=== PATIENT | female | born 1950 | race Caucasian/White ===

== ENCOUNTER 2021-09-15 09:09 | Outpatient (CLI) | payer MEDICARE, OTHER, SELFPAY ==
[2021-09-15 10:02] LABS: Basophils Percent Auto 0.5 % (0.2-1.2); Eosinophils Absolute Auto 0.2 K/mm3 (0-0.3); Eosinophils Percent Auto 1.8 % (0-4.4); Hematocrit 41.1 % (37.0-47.0); Hemoglobin 13.8 g/dL (12.0-15.0); Immature Granulocyte Absolute 0.03 K/mm3 (0.00-0.031); Immature Granulocyte Percent A 0.4 % (0-0.5); Lymphocytes Absolute Auto 3.14 K/mm3 (0.9-3.2); Lymphocytes Percent Auto 37.9 % (18.3-44.2); Mean Corpuscular HGB Conc 33.6 g/dl (32-36); Mean Corpuscular Hemoglobin 30.9 pg (26-34); Mean Corpuscular Volume 91.9 fl (80-100); Mean Platelet Volume 11.1 fl (7.4-10.4); Monocytes Absolute Auto 0.7 K/mm3 (0.1-0.6); Monocytes Percent Auto 8.7 % (2.6-8.5); Neutrophils Absolute Auto 4.2 K/mm3 (1.3-6.7); Neutrophils Percent Auto 50.7 % (45.5-73.1); Platelet Count Result 254 k/mm3 (150-375); Red Blood Count 4.47 M/mm3 (4.2-5.4); Red Cell Distribution Width 13.4 % (11.5-14.5); White Blood Count 8.3 K/mm3 (4.5-10.0)
[2021-09-15 10:16] LABS: Alanine Aminotransferase 17 U/L (4-35); Albumin Level 4.2 g/dL (3.5-5.1); Alkaline Phosphatase 62 U/L (38-126); Anion Gap 7 mmol/L (8-16); Aspartate Amino Transferase 25 U/L (14-36); Bilirubin,Total 0.3 mg/dL (0.2-1.3); Blood Urea Nitrogen 22 mg/dL (7-17); Calcium 8.9 mg/dL (8.4-10.2); Carbon Dioxide 28 mmol/L (22-30); Chloride 104 mmol/L (98-107); Estimated Glomerular Filt Rate > 60; Glucose 80 mg/dL (65-110); Potassium 4.5 mmol/L (3.4-5.0); Sodium 139 mmol/L (137-145)
[2021-09-15 21:19] LABS: Free T4 Free Thyroxine Reflex 1.03 ng/dL (0.78-2.19)
[2021-09-15 22:11] LABS: Total Triiodothyronine (T3) 6.45 NG/ML (0.97-1.69)
== END 2021-09-15 09:10 | disposition home or self-care (01) ==
PROVIDERS: Visit Provider Internal Medicine Cardiovascular Disease
DX: R09.89 Other specified symptoms and signs involving the circulatory and respiratory systems (principal); R00.2 Palpitations; E66.01 Morbid (severe) obesity due to excess calories; Z68.41 Body mass index [BMI] 40.0-44.9, adult
CPT/HCPCS: 36415; 80053; 84439; 84443; 84480; 85025

== ENCOUNTER 2022-02-08 18:01 | Emergency (ER) | payer MEDICARE, OTHER, SELFPAY ==
--- NOTE | 2022-02-08 18:06 | ED.GENADULT ---
HPI - General Adult General Chief complaint: Shortness of Breath/Dyspnea Stated complaint: SOB Time Seen by Provider: 02/08/22 18:11 Source: patient Mode of arrival: ambulatory Limitations: no limitations History of Present Illness HPI narrative: 71 y/o female with history of HTN presented for c/o feeling 'bad' today, consisting of feeling short of breath on and off with exertion and low BP's. Says the BP machine reflected irregular heart rhythm, also felt irregular when she checked her carotid pulse. She checked her BP 7 times today ranging 103/53 HR 86 - 133/60 HR 75. Endorses agricultural research director increased hydralazine about 5 weeks ago and she has continued to monitor her BP. Reports frequent low BPs. Currently denies chest pain, palpitations, fatigue, n/v/d/f/c. Started following with agricultural research director about 18months ago due to c/o possible irregular heart rhythm at that time, says echo and monitor showed mild LVH. Scheduled with agricultural research director Dr Cleaning 03/06. Related Data Home Medications Medication Instructions Recorded Confirmed hydralazine 50 mg tablet 50 mg PO BID 02/08/22 02/08/22 losartan 25 mg tablet 50 mg PO HS 02/08/22 02/08/22 terbinafine HCl 250 mg tablet 250 mg PO DAILY 02/08/22 02/08/22 timolol maleate 0.5 % eye drops 1 drp EACH EYE DAILY 02/08/22 02/08/22 Allergies Allergy/AdvReac Type Severity Reaction Status Date / Time Cephalosporins Allergy Unknown Verified 02/08/22 18:14 Review of Systems Review of Systems: CONSTITUTIONAL: Denies body aches, fever, chills, or sweats. EYES: Denies visual changes, redness, or discharge. CARDIOVASCULAR: Denies chest pain, palpitations, or edema. RESPIRATORY: Denies cough, wheezing. GASTROINTESTINAL: Denies abdominal pain, nausea, vomiting, or diarrhea. MUSCULOSKELETAL: Denies back pain, joint pain, or myalgia. NEUROLOGIC: Denies headache, numbness, tingling, or weakness. All systems reviewed & are unremarkable except as noted in HPI and below PMFSH Comments At time of signature, I have reviewed and agree with nursing past medical, surgical, social and family history unless otherwise noted. Please see nursing chart for further information. There is no relevant family history pertinent to the presenting complaint Exam Narrative: GENERAL: Well-appearing, in no acute distress. EYES: EOMI. No redness or drainage. Conjunctivae normal. ENT: Mucous membranes pink and moist. No rhinorrhea. CHEST: No respiratory distress. LCTAB HEART: Regular rate, arrhythmia, No murmur appreciated. ABDOMEN: Soft, nontender, nondistended, normal active bowel sounds. SKIN: Warm, dry, no rash. Capillary refill normal. Normal skin turgor. NEURO: Alert and oriented x3. Gait steady. PSYCH: Appears irritable Course Course Emergency Course: Patient is aware of diagnosis, understands and agrees to treatment plan. Anticipatory guidance given. Patient agrees to follow-up as directed and is aware of reasons to seek care at the emergency department. Portions of this record may have been created with voice recognition software Level of Care: Express Care Visit Vital Signs Vital signs: Vital Signs Temperature 97.9 F 02/08/22 18:08 Pulse Rate 65 02/08/22 18:08 Respiratory Rate 20 02/08/22 18:08 Blood Pressure 129/88 02/08/22 18:08 Pulse Oximetry 100 02/08/22 18:08 Oxygen Delivery Room Air 02/08/22 18:08 Temperature 97.9 F 02/08/22 18:08 Pulse Rate 65 02/08/22 18:08 Respiratory Rate 20 02/08/22 18:08 Blood Pressure 129/88 02/08/22 18:08 Pulse Oximetry 100 02/08/22 18:08 Oxygen Delivery Room Air 02/08/22 18:08 Transfer Transfered to: [facility] Transportation: Other (private vehicle) Transfer rationale: Pt is agreeable to transfer for further evaluation. Requests transfer to [facility] via private vehicle. Risks of transportation reviewed with pt including injury, worsening of condition and . v/u. will be driving pt; Report
[2022-02-08 18:08] VITALS: BP 129/88; PULSE 65; RESP 20; TEMP 36.6; O2SAT 100
--- NOTE | 2022-02-08 18:40 | ECG_ITS ---
Measurements Intervals [place] Rate: 73 P: 43 SC: 146 QRS: 5 QRSD: 89 T: 34 QT: 379 QTc: 420 Interpretive Statements SINUS RHYTHM ATRIAL AND VENTRICULAR PREMATURE COMPLEXES POSSIBLE LEFT ATRIAL ENLARGEMENT CONSIDER INFERIOR INFARCT, AGE INDETERMINATE ABNORMAL ECG NO PREVIOUS ECG AVAILABLE FOR COMPARISON Electronically Signed On 02-08-2022 20:19:32 CDT by Seth Poon D.O.
== END 2022-02-08 19:08 | disposition short-term general hospital (02) ==
PROVIDERS: Emergency Provider Nurse Practitioner Family; PCP Internal Medicine Cardiovascular Disease
DX: R00.8 Other abnormalities of heart beat (principal)
CPT/HCPCS: 93005; 99213; G0463

== ENCOUNTER 2022-02-08 19:33 | Emergency (ER) | payer MEDICARE, OTHER, SELFPAY ==
--- NOTE | ~2022-02-08 | XR_ITS ---
EXAMINATION: XR chest 2V DATE: 02/08/2022 21:36 INDICATION: Shortness of breath TECHNIQUE: PA and lateral views of the chest were obtained. COMPARISON: Chest radiograph dated 02/15/2012 FINDINGS: The lungs are clear with no focal airspace opacities, pulmonary edema, pleural effusion or pneumothor ax. Heart size is normal. Moderate-sized hiatal hernia. Chronic L1 compression fracture spanned by a posterior spinal fusion with bilateral vertical tam and pedicle screw fixation extending from T12 thr ough L2. IMPRESSION: 1. No acute cardiopulmonary disease. 2. Moderate-sized hiatal hernia. Reviewed, dictated and finalized at location A.
[2022-02-08 19:42] VITALS: BP 146/63; PULSE 77; RESP 20; TEMP 36.4; O2SAT 99
--- NOTE | 2022-02-08 19:55 | ECG_ITS ---
Measurements Intervals [place] Rate: 84 P: 66 [place]: 141 QRS: 30 QRSD: 94 T: 51 QT: 374 QTc: 444 Interpretive Statements SINUS RHYTHM FREQUENT VENTRICULAR PREMATURE COMPLEXES POSSIBLE LEFT ATRIAL ENLARGEMENT DELAYED PRECORDIAL R/S TRANSITION ABNORMAL ECG ABNORMAL ECG NO PREVIOUS ECG AVAILABLE FOR COMPARISON Electronically Signed On 02-09-2022 9:07:50 CDT by Seth Poon D.O.
--- NOTE | 2022-02-08 20:09 | ED.GENADULT ---
HPI - General Adult General Chief complaint: Unspecified Stated complaint: ABNORMAL EKG Time Seen by Provider: 02/08/22 19:51 History of Present Illness HPI narrative: 69-year-old female with history of hypertension presenting the emergency department for evaluation for intermittent low blood pressures. Patient presented to the emergency department from [facility]. Patient does follow-up with Dr Brennan. Patient states that her hydrochlorothiazide was increased on January 03. At the [facility] and today they were concerned because they felt that the patient was in trigeminy. Upon arrival to the ED patient states she feels at her normal baseline. Patient denies any complaints at this time. Patient did have a stress test and Holter monitor within the last year. Related Data Home Medications Medication Instructions Recorded Confirmed hydralazine 50 mg tablet 50 mg PO BID 02/08/22 02/08/22 losartan 25 mg tablet 50 mg PO HS 02/08/22 02/08/22 terbinafine HCl 250 mg tablet 250 mg PO DAILY 02/08/22 02/08/22 timolol maleate 0.5 % eye drops 1 drp EACH EYE DAILY 02/08/22 02/08/22 Allergies Allergy/AdvReac Type Severity Reaction Status Date / Time Cephalosporins Allergy Unknown Verified 02/08/22 18:14 Review of Systems Review of Systems: CONSTITUTIONAL: Denies fever, chills, or sweats. EYES: Denies visual changes, redness, or discharge. ENT: Denies rhinorrhea, congestion, sore throat, or otalgia. CARDIOVASCULAR: Denies chest pain, palpitations, or edema. RESPIRATORY: Denies cough or dyspnea. GASTROINTESTINAL: Denies abdominal pain, nausea, vomiting, or diarrhea. GENITOURINARY: Denies dysuria or hematuria. SKIN: Denies rash or itching. MUSCULOSKELETAL: Denies back pain, joint pain, or myalgia. NEUROLOGIC: Does have intermittent dizziness lightheadedness and generalized fatigue when her blood pressure drops. Exam Narrative: APPEARANCE: Well appearing, no pain, no distress, well-nourished. HEAD: normocephalic, atraumatic. EYES: PERRLA/EOMI, conjunctivae clear. NOSE: Normal no drainage THROAT: Pharynx clear, no exudate. NECK: Supple. No adenopathy, no masses. RESPIRATORY: Airway patent, respirations nonlabored. Clear to auscultation bilaterally, no rales, rhonchi, wheezing. CARDIOVASCULAR: Regular rate and rhythm without murmurs rubs or gallops. ABDOMINAL: Soft, nontender, nondistended, normal bowel sounds MUSCULOSKELETAL: Moves all extremities. Strength/ROM intact, No edema, No calf tenderness. NEURO: Alert. Cranial nerves II through XII intact. Grossly intact SKIN: Warm, dry. Normal Color Course Course Emergency Course: Patient was asymptomatic while she was in the emergency department. Patient's blood pressure was similar to her baseline. Patient was afebrile but did have a minor leukocytosis of 10.6. Patient electrolytes were within normal limits. Patient did have a mildly elevated BNP at 389. Chest x-ray showed no acute cardiopulmonary abnormality. Patient was updated on the results of her work-up. Patient symptoms are most likely due to her dynamic blood pressure. Patient was hypertensive in the emergency department but does have hypotension at various times during the day for her blood pressure logs. Patient was encouraged to have close follow-up with cardiology to see if they want to adjust her blood pressure meds. Patient was comfortable with the plan for discharge and close follow-up Vital Signs Vital signs: Vital Signs Temperature 97.5 F L 02/08/22 19:42 Pulse Rate 77 02/08/22 19:42 Respiratory Rate 20 02/08/22 19:42 Blood Pressure 146/63 H 02/08/22 19:42 Pulse Oximetry 99 02/08/22 19:42 Temperature 97.5 F L 02/08/22 19:42 Pulse Rate 78 02/08/22 21:48 Respiratory Rate 21 H 02/08/22 21:48 Blood Pressure 138/84 02/08/22 21:48 Pulse Oximetry 97 02/08/22 21:48 Medical Decision Making Vital Signs Vital Signs: Vital Signs Temperature 97.5 F L 02/08/22 19:42 Pulse
[2022-02-08 20:16] LABS: Basophils Percent Auto 0.4 % (0.2-1.2); Eosinophils Absolute Auto 0.2 K/mm3 (0-0.3); Eosinophils Percent Auto 1.6 % (0-4.4); Hematocrit 39.1 % (37.0-47.0); Hemoglobin 12.8 g/dL (12.0-15.0); Immature Granulocyte Absolute 0.03 K/mm3 (0.00-0.031); Immature Granulocyte Percent A 0.3 % (0-0.5); Lymphocytes Percent Auto 30.2 % (18.3-44.2); Mean Corpuscular HGB Conc 32.7 g/dl (32-36); Mean Corpuscular Hemoglobin 30.4 pg (26-34); Mean Corpuscular Volume 92.9 fl (80-100); Mean Platelet Volume 10.4 fl (7.4-10.4); Monocytes Absolute Auto 0.8 K/mm3 (0.1-0.6); Monocytes Percent Auto 7.4 % (2.6-8.5); Neutrophils Absolute Auto 6.4 K/mm3 (1.3-6.7); Neutrophils Percent Auto 60.1 % (45.5-73.1); Platelet Count Result 273 k/mm3 (150-375); Red Blood Count 4.21 M/mm3 (4.2-5.4); Red Cell Distribution Width 13.3 % (11.5-14.5); White Blood Count 10.6 K/mm3 (4.5-10.0)
[2022-02-08 20:25] LABS: Appearance Urine Clear (Clear); Bilirubin Urine Negative (Negative); Blood Urine Negative (Negative); Color Urine Yellow (Yellow); Glucose Urine UA Negative (Negative); Ketones Urine Negative (Negative); Leukocyte Esterase Ur Negative LEU/UL (Negative); Nitrate Urine Negative (Negative); Protein Urine Negative (Negative); Specific Grav Ur <= 1.005 (1.001-1.035); Urobilinogen Urine 0.2 mg/dL (<2.0)
[2022-02-08 20:30] LABS: Alanine Aminotransferase 19 U/L (6-35); Albumin Level 4.3 g/dL (3.5-5.1); Alkaline Phosphatase 68 U/L (38-126); Anion Gap 10 mmol/L (8-16); Aspartate Amino Transferase 30 U/L (14-36); Bilirubin,Total 0.3 mg/dL (0.2-1.3); Blood Urea Nitrogen 25 mg/dL (7-17); Calcium 8.8 mg/dL (8.4-10.2); Carbon Dioxide 23 mmol/L (22-30); Chloride 104 mmol/L (98-107); Estimated CRCL calculation 72 ml/min; Estimated Glomerular Filt Rate > 60; Glucose 98 mg/dL (65-110); Magnesium 2.2 mg/dL (1.6-2.3); Sodium 137 mmol/L (137-145)
[2022-02-08 20:38] LABS: NT Pro B Type Natriuretic Pept 389 pg/mL (5-100)
[2022-02-08 20:40] LABS: Add Urine Microscopic? NO
[2022-02-08 20:49] VITALS: PULSE 74
[2022-02-08 21:48] VITALS: BP 138/84; PULSE 78; RESP 21; O2SAT 97
== END 2022-02-08 22:43 | disposition home or self-care (01) ==
PROVIDERS: Emergency Provider Emergency Medicine; PCP Internal Medicine Cardiovascular Disease
DX: I95.9 Hypotension, unspecified (principal); R42 Dizziness and giddiness; R06.02 Shortness of breath; R53.83 Other fatigue; R94.31 Abnormal electrocardiogram [ECG] [EKG]
CPT/HCPCS: 36415; 71046; 80053; 81003; 83735; 83880; 84443; 85025; 93005; 99284

== ENCOUNTER 2022-02-09 14:24 | Emergency (ER) | payer MEDICARE, OTHER, SELFPAY ==
[2022-02-09] VITALS (14 sets, daily range): BP systolic 116–143; BP diastolic 42–83; PULSE 67–93; RESP 14–25; TEMP 36.1–36.3; O2SAT 94–100
--- NOTE | 2022-02-09 14:26 | ECG_ITS ---
Measurements Intervals [place] Rate: 91 P: 62 [place]: 142 QRS: 29 QRSD: 86 T: 60 QT: 344 QTc: 425 Interpretive Statements SINUS RHYTHM VENTRICULAR BIGEMINY POSSIBLE LEFT ATRIAL ENLARGEMENT BASELINE WANDER- AVR, AVL ABNORMAL ECG COMPARED TO ECG 02/08/2022 20:06:59 VENTRICULAR BIGEMINY NOW PRESENT Electronically Signed On 02-09-2022 14:40:26 CDT by Seth Poon D.O.
[2022-02-09 14:59] LABS: Basophils Absolute Auto 0.1 K/mm3 (0.0-0.1); Basophils Percent Auto 0.6 % (0.2-1.2); Eosinophils Absolute Auto 0.2 K/mm3 (0-0.3); Eosinophils Percent Auto 1.9 % (0-4.4); Hematocrit 39.9 % (37.0-47.0); Hemoglobin 12.7 g/dL (12.0-15.0); Immature Granulocyte Absolute 0.02 K/mm3 (0.00-0.031); Immature Granulocyte Percent A 0.2 % (0-0.5); Lymphocytes Absolute Auto 3.01 K/mm3 (0.9-3.2); Lymphocytes Percent Auto 36.3 % (18.3-44.2); Mean Corpuscular HGB Conc 31.8 g/dl (32-36); Mean Corpuscular Hemoglobin 29.7 pg (26-34); Mean Corpuscular Volume 93.4 fl (80-100); Mean Platelet Volume 10.9 fl (7.4-10.4); Monocytes Absolute Auto 0.6 K/mm3 (0.1-0.6); Monocytes Percent Auto 6.9 % (2.6-8.5); Neutrophils Absolute Auto 4.5 K/mm3 (1.3-6.7); Neutrophils Percent Auto 54.1 % (45.5-73.1); Platelet Count Result 269 k/mm3 (150-375); Red Blood Count 4.27 M/mm3 (4.2-5.4); Red Cell Distribution Width 13.5 % (11.5-14.5); White Blood Count 8.3 K/mm3 (4.5-10.0)
[2022-02-09 15:09] LABS: Prothrombin Time 13.2 Seconds (11.1-14.7)
[2022-02-09 15:10] LABS: Partial Thromboplastin Time 25.8 SECONDS (22.3-36.8)
[2022-02-09 15:15] LABS: Alanine Aminotransferase 18 U/L (6-35); Albumin Level 4.3 g/dL (3.5-5.1); Alkaline Phosphatase 61 U/L (38-126); Anion Gap 13 mmol/L (8-16); Aspartate Amino Transferase 24 U/L (14-36); Bilirubin,Total 0.3 mg/dL (0.2-1.3); Blood Urea Nitrogen 25 mg/dL (7-17); Calcium 8.6 mg/dL (8.4-10.2); Carbon Dioxide 24 mmol/L (22-30); Chloride 103 mmol/L (98-107); Estimated CRCL calculation 50 ml/min; Estimated Glomerular Filt Rate 55; Glucose 162 mg/dL (65-110); Lipase 211 U/L (23-300); Potassium 3.9 mmol/L (3.4-5.0); Sodium 140 mmol/L (137-145)
--- NOTE | 2022-02-09 15:20 | ED.ARRPALP ---
HPI - Arrhythmia/Palpitations General Chief Complaint: Arrhythmia/Palpitations Stated Complaint: HEART PALPITATIONS Time Seen by Provider: 02/09/22 14:55 Source: patient, RN notes reviewed and old records reviewed Mode of arrival: ambulatory Limitations: no limitations History of Present Illness HPI narrative: This is a 71 year old female with history of hypertension who presents for evaluation of hydralazine. Patient states she has been having increasing palpitations. She started having palpitations yesterday and she came to ER for evaluation. This morning her palpitations worsened. She describes sensation episodes of heart pounding. She also reports fatigue and shortness of breath worse with exertion. She reports intermittent chest pressure. She started seeing sample display preparer over 1 year ago due to PVCs on her eKG with occasional palpitations. She had an ECHO and stress tested performed at that time. She has appointment with sample display preparer next week. She reports 1 month ago her hydralazine dose was increased. Related Data Home Medications Medication Instructions Recorded Confirmed hydralazine 50 mg tablet 50 mg PO BID 02/08/22 02/08/22 losartan 25 mg tablet 50 mg PO HS 02/08/22 02/08/22 terbinafine HCl 250 mg tablet 250 mg PO DAILY 02/08/22 02/08/22 timolol maleate 0.5 % eye drops 1 drp EACH EYE DAILY 02/08/22 02/08/22 Allergies Allergy/AdvReac Type Severity Reaction Status Date / Time Cephalosporins Allergy Unknown Verified 02/08/22 18:14 Review of Systems Review of Systems: All systems reviewed & are unremarkable except as noted in HPI and below Constitutional: Constitutional: Denies chills and Reports fatigue Cardiovascular: Cardiovascular: Reports irregular heart rhythm, Reports lightheadedness and Reports dyspnea Respiratory: Respiratory: Denies chest congestion, Denies cough and Reports dyspnea Gastrointestinal: Gastrointestinal: Denies abdominal pain, Denies nausea and Denies vomiting [facility] Past Medical History Medical History (Updated 02/09/22 @ 18:12 by Sharron Witt MD) Hypertension Social History Social History (Updated 02/09/22 @ 16:13 by Sharron Witt MD) Smoking status: Never smoker Exam Const: General: no acute distress and alert Nutritional Appearance: well nourished Orientation/consciousness: patient oriented x3 HENMT: Head: normal to inspection Eyes: EOM: EOMs intact bilaterally Resp: Effort & Inspection: normal respiratory effort Auscultation: clear to auscultation bilaterally Cardio: Rate: regular rate Rhythm: abnormal rhythm Heart sounds: no murmurs GI: GI Palp: Yes Soft to palpation, No Tenderness to palpation present (GI), No Guarding due to palpation present (GI) and No Rigid due to palpation Auscultation: normal bowel sounds Skin: General skin exam: normal color Rashes: no rashes Wounds: no wounds Neuro: General: patient oriented x3, moves all extremities and CN's II-XI intact bilaterally Extrem: General: normal to inspection Psych: Mental Status: mental status grossly normal Affect: normal affect Attitude: cooperative Course Reevaluation(s) Reevaluation #1: Patient states she feels much better. LAbs are still unremarkable. She is having frequent PVCs . This may be due to recent increase in hydralazine. She is agreeable to decreasing her hydralazine. I also discussed that I spoke with Lili Bergeron ADMINISTRATIVE OFFICE ASSISTANT for heart care group. She recommended patient be started on metoprolol 12.5 mg BID. Patient instructed to monitor heart rate and BP. She will talk to sample display preparer about medications. Date: 02/09/22 Time: 18:08 Vital Signs Vital signs: Vital Signs Temperature 97 F L 02/09/22 14:28 Pulse Rate 91 02/09/22 14:28 Respiratory Rate 16 02/09/22 14:28 Blood Pressure 119/42 L 02/09/22 14:28 Pulse Oximetry 100 02/09/22 14:28 Oxygen Delivery Room Air 02/09/22 14:28 Temperature 97.3 F L 02/09/22 18:25 Pulse R
[2022-02-09 15:26] LABS: Troponin I < 0.012 ng/mL (0.000-0.034)
[2022-02-09] MEDS: ASPIRIN 81 MG CHEWABLE TABLET 324 MG PO (15:50)
[2022-02-09] MEDS: SODIUM CHLORIDE 0.9% IV 1,000 ML 999 ML IV CONT (15:51)
[2022-02-09 16:04] LABS: D Dimer 0.46 ug/mL (<0.48)
[2022-02-09 16:15] LABS: Magnesium 2.2 mg/dL (1.6-2.3)
[2022-02-09 16:22] LABS: NT Pro B Type Natriuretic Pept 568 pg/mL (5-100)
[2022-02-09 16:41] LABS: Thyroid Stimulating Hormone Reflex 0.819 uIU/mL (0.465-4.68)
[2022-02-09 17:53] LABS: Troponin I < 0.012 ng/mL (0.000-0.034)
== END 2022-02-09 18:27 | disposition home or self-care (01) ==
PROVIDERS: Emergency Medicine; Emergency Provider General Practice; PCP Internal Medicine Cardiovascular Disease
DX: R00.2 Palpitations (principal); I49.3 Ventricular premature depolarization; I10 Essential (primary) hypertension; R06.00 Dyspnea, unspecified; R00.8 Other abnormalities of heart beat; R94.31 Abnormal electrocardiogram [ECG] [EKG]
CPT/HCPCS: 36415; 80053; 83690; 83735; 83880; 84443; 84484; 85025; 85380; 85610; 85730; 93005; 96360; 99284; A9270; J7030

== ENCOUNTER 2022-03-21 07:48 | Outpatient (CLI) | payer MEDICARE, OTHER, SELFPAY ==
[2022-03-21 08:17] LABS: Alanine Aminotransferase 18 U/L (6-35); Aspartate Amino Transferase 23 U/L (14-36)
== END 2022-03-21 07:49 | disposition home or self-care (01) ==
PROVIDERS: PCP Internal Medicine Cardiovascular Disease; Visit Provider Podiatrist Foot & Ankle Surgery
DX: B35.1 Tinea unguium (principal)
CPT/HCPCS: 36415; 84450; 84460

== ENCOUNTER 2022-12-13 02:04 | Day surgery (SDC) | payer MEDICARE, OTHER, SELFPAY ==
[2022-12-01 13:10] VITALS: BMI 41.5
[2022-12-13 08:54] VITALS: BP 162/61; PULSE 62; RESP 18; TEMP 36.4; O2SAT 99
--- NOTE | 2022-12-13 09:01 | P.PNAN_ITS ---
Anes - Initial Pre Proc Eval Procedure: Operation Date: 12/13/22 10:00 Proposed Procedures p Esophagogastroduodenoscopy & Colonoscopy - Vinay Laughlin MD Date/Time: 12/13/22 09:01 Surgeon: Vinay Laughlin MD Pre Op Diagnosis: dysphagia, family hx colon ca Patient Data Age: 72 Gender: F Height: 1.57 m Weight: 103.4 kg Last Vital Signs Temp 97.6 F 12/13/22 08:54 Pulse 62 12/13/22 08:54 Resp 18 12/13/22 08:54 BP 162/61 H 12/13/22 08:54 Pulse Ox 99 12/13/22 08:54 O2 Del Method Room Air 12/13/22 08:54 Allergies Allergy/AdvReac Type Severity Reaction Status Date / Time Cephalosporins Allergy Unknown Verified 12/13/22 08:51 Home Medications Medication Instructions Recorded Confirmed Type hydralazine 50 mg tablet 50 mg PO BID 02/08/22 12/01/22 History losartan 25 mg tablet 50 mg PO HS 02/08/22 12/01/22 History timolol maleate 0.5 % eye drops 1 drp EACH EYE DAILY 02/08/22 12/01/22 History metoprolol tartrate 25 mg tablet 12.5 mg PO BID #30 tabs 02/09/22 12/01/22 Rx Patient hx anesthesia problems: none Family hx anesthesia problems: none Results Review: All pre-operative results and documents have been reviewed as part of the pre- operative evaluation. [facility] Past Medical History Medical History (Updated 11/21/22 @ 10:06 by Celestina Anglin APRN) Dysphagia Family hx of colon cancer Hemorrhoids Hypertension Obesity Regurgitation of food Social History Social History Smoking status: Never smoker Alcohol intake: never Substance use type: does not use Living arrangements: with family Spiritual care concerns: No Anes - Eval Final PreProcedure Day of Procedure 12/13/22 09:01 Patient weight: morbidly obese Heart: regular rate and rhythm Lungs: clear to auscultation Airway: Mallampati scale class II Neurological: alert and oriented Last oral intake: >/= 8 hours ASA classification: III Emergent: no Anesthetic plan: proceed Anesthesia type and monitoring: general GIVS and standard monitoring Results Review: All pre-operative results and documents have been reviewed as part of the pre- operative evaluation. Informed Consent: The patient's anesthetic plan and its attendant risks and benefits were discussed with the patient/family/POA. Questions were solicited and answers provided to the satisfaction of the patient/family/POA.
[2022-12-13] MEDS: LACTATED RINGERS 1,000 ML 150 ML IV CONT (09:03)
--- NOTE | 2022-12-13 09:20 | WPDHPUPDATE1 ---
History and Physical Update Update Date/Time: 12/13/22 09:20 History and Physical has been reviewed, including an updated exam of the patient. There are NO changes in the patient's condition. Risks, benefits, and alternatives have been discussed and questions answered. Patient agrees to proceed with procedure.
--- NOTE | 2022-12-13 09:54 | SUR.OPER ---
EGD started at 926 and ended at 34. Colonoscopy started at 938 and ended at 951.
[2022-12-13 09:56] VITALS: BP 124/76; PULSE 69; RESP 21; O2SAT 99
[2022-12-13 10:06] VITALS: BP 136/76; PULSE 64; RESP 16; O2SAT 97
[2022-12-13 10:16] VITALS: BP 157/73; PULSE 56; RESP 13; O2SAT 100
== END 2022-12-13 10:27 | disposition home or self-care (01) ==
PROVIDERS: Referring Provider Internal Medicine Cardiovascular Disease; Visit Provider Internal Medicine Gastroenterology
PROC: 0DJ08ZZ Inspection of Upper Intestinal Tract, Via Natural or Artificial Opening Endoscopic (ICD-10-PCS; CPT 43235; principal; 2022-12-13 10:00)
DX: Z12.11 Encounter for screening for malignant neoplasm of colon (principal); D12.2 Benign neoplasm of ascending colon; K57.30 Diverticulosis of large intestine without perforation or abscess without bleeding; K64.8 Other hemorrhoids; Z80.0 Family history of malignant neoplasm of digestive organs; K21.00 Gastro-esophageal reflux disease with esophagitis, without bleeding; K44.9 Diaphragmatic hernia without obstruction or gangrene; K22.2 Esophageal obstruction; I10 Essential (primary) hypertension; E66.01 Morbid (severe) obesity due to excess calories; Z68.41 Body mass index [BMI] 40.0-44.9, adult
CPT/HCPCS: 45385; 43239; 43249; 88305; C1726; J2704; J7120

== ENCOUNTER 2023-02-13 01:32 | Day surgery (SDC) | payer MEDICARE, OTHER, SELFPAY ==
[2023-01-31 14:06] VITALS: BMI 43.9
[2023-02-13 08:46] VITALS: BP 144/65; PULSE 62; RESP 18; TEMP 36.1; O2SAT 99
--- NOTE | 2023-02-13 08:49 | WPDANESEPPF ---
Anes - Initial Pre Proc Eval Procedure: Operation Date: 02/13/23 10:00 Proposed Procedures p Esophagogastroduodenoscopy - Vinay Laughlin MD Date/Time: 02/13/23 08:49 Surgeon: Vinay Laughlin MD Pre Op Diagnosis: Esophageal Ring Patient Data Age: 72 Gender: F Height: 1.57 m Weight: 104.3 kg Last Vital Signs Temp 97 F L 02/13/23 08:46 Pulse 62 02/13/23 08:46 Resp 18 02/13/23 08:46 BP 144/65 H 02/13/23 08:46 Pulse Ox 99 02/13/23 08:46 O2 Del Method Room Air 02/13/23 08:46 Allergies Allergy/AdvReac Type Severity Reaction Status Date / Time Cephalosporins Allergy Unknown Verified 02/13/23 08:43 Home Medications Medication Instructions Recorded Confirmed Type hydralazine 50 mg tablet 50 mg PO BID 02/08/22 01/31/23 History losartan 25 mg tablet 50 mg PO HS 02/08/22 01/31/23 History timolol maleate 0.5 % eye drops 1 drp EACH EYE DAILY 02/08/22 01/31/23 History metoprolol tartrate 25 mg tablet 12.5 mg PO BID #30 tabs 02/09/22 02/13/23 Rx Patient hx anesthesia problems: none Family hx anesthesia problems: none Results Review: All pre-operative results and documents have been reviewed as part of the pre-operative evaluation. [facility] Past Medical History Medical History (Updated 02/13/23 @ 08:53 by Vinay Laughlin MD) Dysphagia Family hx of colon cancer Hemorrhoids Hiatal hernia Hypertension Obesity Regurgitation of food Social History Social History Smoking status: Never smoker Alcohol intake: never Substance use type: does not use Living arrangements: with family Spiritual care concerns: No Anes - Eval Final PreProcedure Day of Procedure 02/13/23 08:49 Patient weight: morbidly obese Heart: regular rate and rhythm Lungs: clear to auscultation Airway: Mallampati scale class II Neurological: alert and oriented Last oral intake: >/= 8 hours ASA classification: III Emergent: no Anesthetic plan: proceed Anesthesia type and monitoring: general GIVS and standard monitoring Results Review: All pre-operative results and documents have been reviewed as part of the pre-operative evaluation. Informed Consent: The patient's anesthetic plan and its attendant risks and benefits were discussed with the patient/family/POA. Questions were solicited and answers provided to the satisfaction of the patient/family/POA.
--- NOTE | 2023-02-13 08:52 | PM.HPGS ---
History of Present Illness History of Present Illness Consent: Risks, benefits, and alternatives have been discussed and questions answered. Patient agrees to proceed with procedure. Chief complaint: Esophageal Ring Narrative: Jeannine Ferreira is a 72 year old female with hiatal hernia and esophageal ring dilated up to 15 mm balloon 12/2022, here to reassess, not longer using ppi Review of Systems Constitutional: Constitutional: Denies headache(s) and Denies weakness Eyes: Eyes: Denies blurry vision ENT: Reports Normal hearing present, Denies headache(s) and Denies neck pain Cardiovascular: Cardiovascular: Denies chest pain and Denies dyspnea Respiratory: Respiratory: Denies dyspnea Gastrointestinal: Gastrointestinal: Reports no additional gastrointestinal complaints Genitourinary: Genitourinary: Denies dysuria Musculoskeletal: Musculoskeletal: Denies neck pain Integumentary/Breasts: Skin/Breast: Denies dry skin Neurologic: Reports Normal hearing present, Denies headache(s) and Denies weakness Psychiatric: Psychiatric: Denies anxiety Endocrine: Endocrine: Denies change in body appearance Hematologic/Lymphatic: Hematologic/Lymphatic: Denies easy bleeding Allergic/Immunologic: Allergic/Immunologic: Denies urticaria PMFSH Past Medical History Medical History (Updated 02/13/23 @ 08:53 by Vinay Laughlin MD) Dysphagia Family hx of colon cancer Hemorrhoids Hiatal hernia Hypertension Obesity Regurgitation of food Social History Social History Smoking status: Never smoker Alcohol intake: never Substance use type: does not use Living arrangements: with family Spiritual care concerns: No Meds Home Medications and Allergies Home Medications Medication Instructions Recorded Confirmed Type hydralazine 50 mg tablet 50 mg PO BID 02/08/22 01/31/23 History losartan 25 mg tablet 50 mg PO HS 02/08/22 01/31/23 History timolol maleate 0.5 % eye drops 1 drp EACH EYE DAILY 02/08/22 01/31/23 History metoprolol tartrate 25 mg tablet 12.5 mg PO BID #30 tabs 02/09/22 02/13/23 Rx Allergies Allergy/AdvReac Type Severity Reaction Status Date / Time Cephalosporins Allergy Unknown Verified 02/13/23 08:43 Vital Signs Vital Signs - 24 hr 02/13/23 08:46 Temperature 97 F L Pulse Rate 62 Respiratory Rate 18 Blood Pressure 144/65 H Pulse Oximetry 99 Oxygen Delivery Room Air Exam Const: General: comfortable and no acute distress HENMT: Face/Nose/Sinus: Normal nares present Eyes: General: appearance normal, both eyes and all related structures Neck: Neck: no JVD Resp: Auscultation: clear to auscultation bilaterally Cardio: Rate: regular rate Rhythm: regular rhythm GI: Inspection: non-distended GI Palp: Yes Soft to palpation Skin: General skin exam: normal color Neuro: General: gait normal Speech: normal speech Extrem: General: normal to inspection Psych: Mental Status: mental status grossly normal Assessment and Plan Assessment and plan (1) Dysphagia: Code(s): R13.10 - Dysphagia, unspecified Status: Acute Assessment and Plan: egd, will assess if needs further dilatation (2) Hiatal hernia: Code(s): K44.9 - Diaphragmatic hernia without obstruction or gangrene Status: Acute
[2023-02-13] MEDS: LACTATED RINGERS 1,000 ML 150 ML IV CONT (09:01)
[2023-02-13 09:16] VITALS: BP 136/70; PULSE 64; RESP 22; O2SAT 96
[2023-02-13 09:26] VITALS: BP 144/80; PULSE 60; RESP 20; O2SAT 95
[2023-02-13 09:36] VITALS: BP 147/80; PULSE 62; RESP 20; O2SAT 96
== END 2023-02-13 09:38 | disposition home or self-care (01) ==
PROVIDERS: Visit Provider Internal Medicine Gastroenterology
PROC: 0DJ08ZZ Inspection of Upper Intestinal Tract, Via Natural or Artificial Opening Endoscopic (ICD-10-PCS; CPT 43235; principal; 2023-02-13 10:00)
DX: K21.00 Gastro-esophageal reflux disease with esophagitis, without bleeding (principal); K22.2 Esophageal obstruction; K44.9 Diaphragmatic hernia without obstruction or gangrene; K29.70 Gastritis, unspecified, without bleeding; I10 Essential (primary) hypertension; Z80.0 Family history of malignant neoplasm of digestive organs; E66.01 Morbid (severe) obesity due to excess calories; Z68.41 Body mass index [BMI] 40.0-44.9, adult
CPT/HCPCS: 43249; C1726; J2704; J7120

== ENCOUNTER 2023-05-15 08:07 | Emergency (ER) | payer MEDICARE, OTHER, SELFPAY ==
--- NOTE | 2023-05-15 08:13 | ED.URI ---
HPI - URI/Sore Throat General Chief Complaint: Upper Respiratory Infection Stated Complaint: Cough;Congestion;Sore Throat Time Seen by Provider: 05/15/23 08:25 Source: patient and RN notes reviewed Mode of arrival: ambulatory Limitations: no limitations History of Present Illness HPI Narrative: 72-year-old female presents with concern for more than one-month history of cough. She reports on Tia 8 days ago she has started having nasal congestion, sore throat, body aches, chills, fever, fatigue. Reports today's the 1st day she has been out of bed. Reports she is taking Coricidin HBP. She reports exposure to ill family members. MD elicited complaint: cough and sore throat Related Data Home Medications Medication Instructions Recorded Confirmed hydralazine 50 mg tablet 50 mg PO BID 02/08/22 05/15/23 losartan 25 mg tablet 50 mg PO HS 02/08/22 05/15/23 timolol maleate 0.5 % eye drops 1 drp EACH EYE DAILY 02/08/22 05/15/23 Allergies Allergy/AdvReac Type Severity Reaction Status Date / Time Cephalosporins Allergy Unknown Verified 05/15/23 08:25 Review of Systems Review of Systems: CONSTITUTIONAL: Reports malaise, chills, sweats, fever. EYES: Denies visual changes, redness, or discharge. ENT: Reports rhinorrhea, congestion, and sore throat. CARDIOVASCULAR: Denies chest pain, palpitations, or edema. RESPIRATORY: Reports cough. Denies dyspnea. GASTROINTESTINAL: Denies abdominal pain, nausea, vomiting, diarrhea SKIN: Denies rash or itching. MUSCULOSKELETAL: Reports myalgia. NEUROLOGIC: Reports headache. All systems reviewed & are unremarkable except as noted in HPI and below PMFSH Past Medical History Medical History (Updated 05/15/23 @ 08:49 by Parisa Cobian NP) Dysphagia Family hx of colon cancer Hemorrhoids Hiatal hernia Hypertension Obesity Regurgitation of food Social History Social History Smoking status: Never smoker Alcohol intake: never Substance use type: does not use Living arrangements: with family Spiritual care concerns: No Comments At time of signature, agree with nursing past medical, surgical, social and family history. There is no relevant family history pertinent to the presenting complaint Exam Narrative: GENERAL: Nontoxic-appearing, well-nourished, and in no acute distress. HEAD: Normocephalic EYES: PERRLA, conjunctivae clear ENT: Nares clear, turbinates edematous and erythematous. Mucous membranes moist. TM pearly huff with dull light reflex bilaterally; no tragal tenderness. Oropharynx erythematous without lesions. Tonsils enlarged and without exudate, no drooling, no hoarseness, no trismus, uvula midline. NECK: Supple. No lymphadenopathy CHEST: Clear to auscultation, breath sounds equal. No wheezing, rhonchi, rales, or stridor. No respiratory distress, speaks in full sentences. HEART: Regular rate and rhythm. No murmur heard. SKIN: Warm, dry, no rash. NEURO: Alert and oriented x3. PSYCH: Normal mood and affect Course Course Emergency Course: Patient is aware of diagnosis, understands and agrees to treatment plan. Anticipatory guidance given. Patient agrees to follow-up as directed and is aware of reasons to seek care at the emergency department. Portions of this record may have been created with voice recognition software Level of Care: Express Care Visit Vital Signs Vital signs: Reviewed. MDM - URI/Sore Throat MDM Narrative Medical decision making narrative: Differential diagnosis considered: Paiz virus, strep pharyngitis, allergic rhinitis, upper respiratory tract infection, sinusitis, rhinosinusitis, nasopharyngitis. viral pharyngitis, otitis media, otitis externa, pneumonia, bronchitis, viral cough syndrome, viral syndrome, and influenza. Exam findings show no acute concerns or changes; patient is non-toxic appearing and is in no distress. Patient is appropriate for outpatient treatmen
[2023-05-15 08:14] VITALS: BP 135/68; PULSE 67; RESP 19; TEMP 35.6; O2SAT 99
== END 2023-05-15 08:55 | disposition home or self-care (01) ==
PROVIDERS: Emergency Provider Nurse Practitioner
DX: J32.9 Chronic sinusitis, unspecified (principal); I10 Essential (primary) hypertension; Z79.899 Other long term (current) drug therapy
CPT/HCPCS: 87081; 87880; 99213; G0463

== ENCOUNTER 2024-04-24 14:20 | Outpatient (CLI) | payer MEDICARE, OTHER, SELFPAY ==
--- NOTE | ~2024-04-24 | DEXA_ITS ---
Bone Density Report Name: HILARIO WHITMAN Age: 73 Sex: Female Ethnicity: White Date of : 1950 Indication: postmenopausal; screening for osteoporosis; prior fracture; Referring Provider: JACQUIE CASTANEDA Study: Bone densitometry was performed. Exam Date: April 24, 2024 Accession number: [id number] Bone Density: Region BMD T-score Z-score Classification AP Spine(L2, L3, L4) 1.311 2.1 4.6 Normal Femoral Neck (Left) 0.847 0.0 2.1 Normal Total Hip (Left) 1.105 1.3 3.1 Normal Femoral Neck (Right) 0.782 -0.6 1.5 Normal Total Hip (Right) 1.183 2.0 3.8 Normal Total Hip Mean 1.144 1.7 3.5 Normal World Health Organization criteria for BMD impression classify patients as: Normal (T-score at or above -1.0), Osteopenia (T-score between -1.0 and -2.5), or Osteoporosis (T-score at or below -2.5). 10-year Fracture Risk: FRAX not reported because: All T-scores for Spine Total, Hip Total, Femoral Neck at or above -1.0 Prior hip or vertebral fracture Clinical Information Provided by Patient: Have had a previous hip or vertebral fracture Has had a low trauma fracture Patient maximum height was 62 Menopause Age: 55 No regular weight bearing exercise Drinks caffeinated beverages Onset of menses at age 11 Number of children 5 Impression: The patient has normal bone mass. The patient has risk factors, including: previous fracture. Discussion: INCREASED RISK OF FRACTURE DUE TO HISTORY OF FRACTURE. The patient's previous fracture puts the patient at high risk of a future fracture. In untreated patients, the risk of osteoporotic fracture increases approximately two-fold for each 1.0 SD decrease in T-score. Low bone density is not the only risk factor for fracture; also consider factors such as patient's age, frailty or poor health, risk of falling, risk of injury, previous osteoporotic fracture, family history of osteoporosis, cigarette smoking, low body weight, etc. Not everyone with a low trauma fracture has osteoporosis; osteomalacia and other metabolic bone disorders should also be considered. Patients who have osteoporosis should be evaluated for specific diseases and conditions (secondary causes) that may cause or contribute to bone loss and fracture risk. National Osteoporosis Foundation (NOF) recommends pharmacologic intervention for patients with a prior hip or vertebral fracture regardless of BMD T-score. The patient should follow a healthful lifestyle (good nutrition with adequate calcium and vitamin D, and appropriate weight-bearing exercise). Follow-Up: Consider a repeat BMD and Vertebral Fracture Assessment (VFA) exam in 2 years or sooner if medically necessary, to reassess this patient's status. Reported by: SHARLENE on 04/24/2024 3:12:00 PM. Reviewed, dictated and finalized at location AJuan FERNANDEZ
== END 2024-04-24 14:21 | disposition home or self-care (01) ==
PROVIDERS: Visit Provider Emergency Medicine
DX: Z78.0 Asymptomatic menopausal state (principal)
CPT/HCPCS: 77080

== ENCOUNTER 2024-04-28 10:41 | Outpatient (CLI) | payer MEDICARE, OTHER, SELFPAY ==
--- NOTE | ~2024-04-28 | MR_ITS ---
EXAMINATION: MR knee LT wo con DATE: 04/28/2024 11:21 INDICATION: Left knee pain. TECHNIQUE: Magnetic resonance imaging (MRI) of the left knee was performed without intravenous contra st. Sequences included axial PD-weighted FS FSE, coronal PD-weighted FSE and PD-weighted FS FSE, sagi ttal PD-weighted FSE, and sagittal T2-weighted FS FSE. COMPARISON: None. FINDINGS: Medial compartment: There is a complex tear of posterior horn of medial meniscus. There is partial-thickness cartilage lo ss of tibial condyle, deep anteromedially where there is mild subchondral edema-like marrow signal in tensity. There is full-thickness cartilage loss of femoral condyle involving the central articular day rface with mild subchondral edema-like marrow signal intensity. Osteophytes are noted. Lateral compartment: Lateral meniscus is normal. There is partial-thickness cartilage loss of femoral condyle, deep at the central articular surface. There is cartilage surface irregularity of femoral condyle. Osteophytes a re noted. Patellofemoral compartment: There is partial-thickness cartilage loss of patella, deep at the medial facet. There is shallow part ial-thickness cartilage loss of trochlea. Osteophytes are noted. Ligaments and tendons: The anterior and posterior cruciate ligaments are normal. There are changes of prior sprains of media l collateral ligament and fibular collateral ligament contrast characterized by thickening and increa sed signal intensity proximally. There is mild patellar tendinopathy. Fluid: There is a small knee joint effusion. There is a small Mcdonald's cyst. There is mild prepatellar and day perficial infrapatellar bursitis. IMPRESSION: 1. Severe chondrosis of medial compartment and moderate chondrosis of lateral and patellofemoral comp artments. 2. Complex tear of medial meniscus. 3. Small knee joint effusion. 4. Small Mcdonald's cyst. Reviewed, dictated and finalized at location A. TH COORDINATOR IMPRESSION: 1. Severe chondrosis of medial compartment and moderate chondrosis of lateral a nd patellofemoral compartments. 2. Complex tear of medial meniscus. 3. Small knee joint effusion. 4. Small Mcdonald's cyst.
== END 2024-04-28 10:42 | disposition home or self-care (01) ==
LOC: MICIMG 10:43
PROVIDERS: PCP Emergency Medicine; Visit Provider Physician Assistant
DX: M25.462 Effusion, left knee (principal); S83.232A Complex tear of medial meniscus, current injury, left knee, initial encounter; X58.XXXA Exposure to other specified factors, initial encounter; M71.22 Synovial cyst of popliteal space [Baker], left knee
CPT/HCPCS: 73721

== ENCOUNTER 2024-11-11 12:17 | Outpatient (CLI) | payer MEDICARE, OTHER, SELFPAY ==
--- NOTE | ~2024-11-11 | XR_ITS ---
EXAMINATION: XR barium swallow DATE: 11/11/2024 13:24 INDICATION: Dysphagia TECHNIQUE: The patient drank thin barium. Fluoroscopy of the hypopharynx and esophagus was performed. Fluoroscopy exposure time was 2.2 minutes. The total number of images was 8. The dose-area product w as 19.6 Gy-cm^2. COMPARISON: None. FINDINGS: There is no mass or stricture of the esophagus. Esophageal dysmotility is identified with t ertiary contractions. There is a moderate air-filled hiatal hernia. There was mild gastroesophageal reflux without provocative maneuvers. IMPRESSION: Esophageal dysmotility with a moderate air-filled hiatal hernia. Mild gastroesophageal reflux without provocative maneuvers Reviewed, dictated and finalized at location A. IMPRESSION: Esophageal dysmotility with a moderate air-filled hiatal hernia. Mild gastroeso phageal reflux without provocative maneuvers
--- NOTE | ~2024-11-11 | XR_ITS ---
MODIFIED ESOPHAGRAM HISTORY: Dysphagia. TECHNIQUE: Modified barium esophagram was performed by speech pathologist under radiologist fluorosco pic guidance. This was recorded on tape. The exam was reviewed on 11/12/2024 19:00 CDT. The DAP for this procedure was 19.6 Gycm2. Fluoroscopy time is 2.2 minutes. FINDINGS: Lateral projection of the cervical spine demonstrates age-appropriate degenerative diseas e. No penetration or aspiration. IMPRESSION: No penetration or aspiration Please refer to speech pathologist report for additional detail. Reviewed, dictated and finalized at location A.
--- OUTSIDE RECORDS SUMMARY | 2024-11-11 12:22 | XMS_ITS | Clinical Summary ---
Author Organization [facility] Address [address] [place] [address] Care Team Providers Care News Technical Director Name Role Phone Unavailable Primary Care Provider Unavailabl e Social History Tobacco Use Types Packs/Day Years Used Date Smoking Tobacco: Never Assessed Comments Unknown Sex and Gender Information Value Date Recorded Sex Assigned at Not on file Legal Sex Female 7:54 PM CDT Gender Identity Not on file Sexual Orientation Not on file Plan of Treatment Health Maintenance Due Date Last Done Comments Colorectal Cancer Screening Colonoscopy (10 Years) 1950 Hepatitis C 1967 DTaP, Tdap and Td Vaccines ( 1 - Tdap) 1968 Pneumococcal Vaccine: 50+ Ye ars (1 of 1 - PCV) 1999 Zoster Vaccines (1 of 2) 1999 Dexa Scan (General) 2014 COVID-19 Vaccine ( - 2023-2 5 season) 2024 RSV Immunization or 60+ Years (1 - 1-dose 75+ series) 2024 Meningococcal B Vaccine Aged Out No l onger eligible based on patient's age to complete this topic Meningococcal Vaccine Aged Out No maya deidra eligible based on patient's age to complete this topic RSV Immunizations Under 20 Months Aged Out No longer eligible based on patient's age to complete this topic
--- OUTSIDE RECORDS SUMMARY | 2024-11-11 12:22 | XMS_ITS | Referral Summary ---
Author Organization [facility] Address [address] [place] [address] Care Team Providers Care Reporting Process Consultant Name Role Phone Ayden Goodrich MD Primary Care Provider [phone] Allergies Active Allergy Reactions Criticality Noted Date Comments Cephalexin Unknown Low 10/16/2013 Penicillins Unknown Low 08/19/2018 Medications timolol (TIMOPTIC) 0.5 % ophthalmic solution 05/21/2018 Active Refresh Tears 0.5 % ophthalmic solution as needed 07/29/2021 Active biotin 1 mg tablet Take 1 tablet (1,000 mcg total) by mouth daily Active metoprolol XL (TOPROL-XL) 25 mg extended release tablet TAKE 1 TABLET(25 MG) BY MOUTH DAILY 90 tablet 3 01/24/2024 Active hydrALAZINE (APRESOLINE) 25 mg tabletIndications :Essential hypertension TAKE 1 TABLET(25 MG) BY MOUTH TWICE DAILY 180 tablet 3 01/24/2024 Active losartan (COZAAR) 50 mg tabletIndications :Labile hypertension TAKE 1 TABLET(50 MG) BY MOUTH DAILY 90 tablet 2 04/25/2024 Active Active Problems Problem Noted Date Diagnosed Date Dysphagia 11/06/2022 PVC (premature ventricular contraction) 02/17/20 Morbid (severe) obesity due to excess calories 0 09/15/2021 Body mass index 40.0-44.9, adult (CMS/[facility]) 09/15 Mixed hyperlipidemia 04/11/2021 Palpitations 01/28/2021 ZARATE (dyspnea on exertion) 01/28/2021 Chest tightness 01/28/2021 Essential hypertension 01/28/2021 Arthralgia of hip 12/21/2016 Back pain 10/16/2013 Joint pain 10/16/2013 Mixed stress and urge urinary incontinence 10/16 Myofascial pain 10/16/2013 Proctocele 10/16/2013 Urge incontinence of urine 10/16/2013 Social History Tobacco Use Types Packs/Day Years Used Date Smoking Tobacco: Never Cigarettes Smokeless Tobacco: Never Tobacco Cessation:Counseling Given: Not Answered Alcohol Use Standard Drinks/Week Comments Yes 0 (1 standard drink = 0.6 oz pur e alcohol) rare AUDIT-C Answer Date Recorded Q1: How often do you have a drink containing alcohol? Never 05/28/2024 Q2: How many drinks containi ng alcohol do you have on a typical day when you are drinking? Patient does not drink Q3: How often do you have si x or more drinks on one occasion? Never 05/28/2024 Comments Unknown Sex and Gender Information Value Date Recorded Sex Assigned at Not on file Legal Sex Female 6:28 AM FRONT DESK LEAD Gender Identity Female 01/27/2021 10:14 AM CDT Sexual Orientation Straight 01/27/2021 10 :14 AM CDT Last Filed Vital Signs Vital Sign Reading Time Taken Comments Blood Pressure 108/82 05/28/2024 9:41 AM FRONT DESK LEAD Pulse 75 05/28/2024 9:41 AM FRONT DESK LEAD Temperature - - Respiratory Rate 18 05/28/2024 9:41 AM FRONT DESK LEAD Oxygen Saturation 98% 05/26/2024 9:01 AM FRONT DESK LEAD Inhaled Oxygen Concentration - - Weight 107 kg (236 lb) 05/28/2024 9:41 AM FRONT DESK LEAD Height 157.5 cm (5' 2) 05/28/2024 9:41 AM FRONT DESK LEAD Body Mass Index 43.16 05/28/2024 9:41 AM FRONT DESK LEAD Plan of Treatment Not on file Insurance MEDICARE FOR LIFE MEDICARE FOR LIFE MEDICARE [facility] Address: [address] [address] [place] [address] FOR LIFE Care Teams Reporting Process Consultant Relationship Specialty Start Date End Date Ayden Goodrich MD [address] [place] [address] PCP - General Family Medicine 05/26/24
--- OUTSIDE RECORDS SUMMARY | 2024-11-11 12:22 | XMS_ITS | Data Portability ---
Author Organization [place] - [facility], Main Office Address [address] [place] [address] Care Team Providers Care Hoisting Engineer Name Role Phone JACQUIE CASTANEDA Primary Care Provider JACQUIE CASTANEDA Referring Provider Assessment Encounter Date Assessment Date Assessment LastModified by Organization Details LastModified Time 06/18/2024 06/18/2024 74-year-old female presents for evaluation of her left knee. She reports injury in December 01, 2023 when she was just walking. She denies any acute injury. She has done extensive course of physical therapy which has helped, and also had a hyaluronic acid injection last month. She currently reports 10/10 pain. She denies having any catching or locking up. She has a history of prediabetes with A1c level of 6.2. She has a compliance testing analyst for CHF as well. Review of systems per patient questionnaire Physical exam: She has tenderness palpation over the medial joint line. She is using a walker. She has antalgic gait. Range of motion 5-130. Positive Tamara's. 1A Zachary, stable posterior drawer, stable varus and valgus stress. BMI 41.7. X-rays reviewed, demonstrating mild degenerative changes with some joint space narrowing. MRI was reviewed, demonstrating a degenerative tear of the posterior horn the medial meniscus She has a meniscus tear as well as some degenerative changes. We discussed treatment for this includes continued conservative management with anti-inflammator ies, therapy, and bracing. We will give her prescription for meloxicam. She should continue with her physical therapy. We will also order her a medial morphology teacher brace. We also discussed weight loss. We also discussed surgery for partial meniscectomy to clean out the meniscus. She does not have any mechanical meniscal symptoms currently so we will try to continue conservative management. If she did want surgery then we would want to wait 3 months after her last injection, which would be in August. She was interested in that and we will look for a surgery date to pencil in. Risks, benefits, and alternatives to surgery were discussed with the patient. Risks include but are not limited to pain, stiffness, infection, bleeding, blood clot, injury to other structures including nerves or blood vessels, need for future surgery, and anesthesia risks. We discussed the goal of surgery is to improve symptoms but there is no guarantee of improvement and it is possible the patient's condition is worse after surgery. Patient agreed and would like to proceed. [email or web address] Not available 06/18/2024 16:27:32 08/13/2024 08/13/2024 HPI: 74 year old female presents today for follow up of left knee pain. Last evaluated on Jun 18 and treatment plan included anti-inflammator ies, HEP, and bracing. Partial meniscectomy was discussed at the time. She comes in today with improvement in pain, rating it 1/10. States that it will sometimes ache at night, but overall, her knee doesn't bother me. She did receive a Hyaluronic acid injection in May at a different clinic, which has helped with her pain. She goes back in October for another injection. She has not received her brace yet, but should be getting it in the next week. Doing well overall and doesn't want surgery at this time. No concerns today. Physical Exam: General: Normal appearance. No acute distress. Inspection: No evidence of swelling, erythema, bruising or deformity. Palpation: Mild tenderness over medial joint line. ROM: 0-130 Motor: 5/5 strength. Sensation: Sensation intact. Assessment & Plan: Continue with conservative management. Meloxicam as needed for pain. I discussed with the patient the potential risk of taking NSAIDs with their underlying medical condition. Continue HEP. Follow Up: As needed for pain. All questions were answered. Patient verbalized understanding of treatment plan [email or web address] Not available 08/13/2024 12:44:50 Plan of Treatment Reminders Order Date Submit Date Provider Last Modified By Organization Details Last Modified Time Details Appointments None record ed. Lab None record ed. Referral None record ed. Procedures None record ed. Surgeries None record ed. Imaging XR, knee 025 06/18/19 25 [email or web address] [facility], [address], [place], [address], 16:34:34 Medication Orders None record ed. Patient TargetsNo targets recorded. Patient InstructionsNo instructions recorded. Reason for Referral None Reported. Results Created Date Observation Date Name Description Value Unit Range Abnormal Flag Note LastModifiedBy Organization Detail LastModifiedTime 06/18/19 XR, knee No observ ation record ed. [email or web address] [facility] [address], [place], [address], 06/18/2024 10:35:27 06/18/19 25 04/28/2024 MRI, knee, w/o contr ast No observ ation record ed. [email or web address] Not Available 2024 10:43:41 Result Notes None recorded. Problems Name Problem SNOMED Code Status Onset Date Resolution Date Notes Provider Name and Address Organization Details Recorded Time Pain of left knee joint 1151671446415 07 Active 2024 FLORENCE Lagunas, [employer] 10:27:32 Osteoarthri tis of left knee joint 4118445765034 09 Active 2024 Sonia Trejo PA-C [address] [facility] [address], [place], [address] [facility] [employer] 12:44:20 Problem Notes None recorded. Medical Equipment None Reported. Allergies Allergen ID Allergen Name Allergen Category Reaction Reaction Severity Criticality Documentation Date Start Date Code Code System Note Provider Name and Address Organization Details Recorded Time 97358 Medicinal product containin g cephalosp adan and acting as antibacte rial agent (product) medicatio n rash Not available Not available 06/18/2024 22523 9009 SNOMED FLORENCE Lagunas, [employer] 10:23:18 Medications Name Sig Start Date Stop Date Status Note LastModified by Organization Details LastModified Time losartan 50 mg tablet active Not Available Not Available No t Available hydralazine 25 mg tablet active Not Available Not Available Not Available meloxicam 7.5 mg tablet TAKE 1 TABLET BY MOUTH EVERY DAY active Not Available Not Available No t Available metoprolol succinate ER 25 mg tablet,extend ed release 24 hr active Not Available Not Available Not Available timolol maleate 0.5 % eye drops INSTILL 1 DROP IN EACH EYE EVERY MORNING active Not Available Not Available No t Available Vitals Date Recorded Body height Body mass index (BMI) Body weight Provider Name and Address Organization Details Last Updated DateTime 06/18/2024 157.48 cm 41.7 kg/m2 804581.06 g FLORENCE Lagunas [facility] [employer] [facility] 06/18/2024 10:22:31 Date Recorded Body height Provider Name an d Address Organization Details Last Updated DateTime 08/13/2024 157.48 cm Angelita Garcia [facility] [employer] [facility] 08/13/2024 10:55:47 Social History Question Answer Notes LastModified by Organizat ion Details LastModified Time Tobacco Smoking Status Former Smoker FLORENCE Lagunas [facility] [employer] [facility] 06/18/2024 10:25:49 What Is Your Level Of Caffeine Consumption? None [email or web address] Information not available 06/18/2024 What Was The Date Of Your Most Recent Tobacco Screening? 06/18/2024 [email or web address] Information not available 06/18/2024 Sex: Unknown Functional Status None recorded. Mental Status None recorded. Family History Relationship Description Onset Age of this Age Resolved Age Notes LastModified by Organization Details LastModified Time Maternal Uncle Family history of malignant neoplasm [email or web address] Not available 2024 10:24:43 Mother Diabetes mellitus [email or web address] Not available 2024 10:24:50 Mother Heart disease [email or web address] Not available 2024 10:25:00 Mother Hypertensive disorder [email or web address] Not available 2024 10:25:14 Father Family history of stroke [email or web address] Not available 2024 10:25:28 Medical History Condition Response HEART DISEASE/HEART PROBLEMS Y DIABETES, TYPE Y HEART ARRHYTHMIA Y HYPERTENSION Y Gynecological HistoryNo gynecological history recorded. Obstetrics History GPAL:G 0 P 0 0 0 0 Past Encounters Encounter ID Performer Location Encounter Start Date Encounter Closed Date Diagnosis/Indication Diagnosis SNOMED-CT Code Diagnosis ICD10 Code Diagnosis Note [id number] Som Thompson MD [facility] [address] [place] [id number] 06/18/2024 09:56:42 06/18/2024 11:14:40 Pain of left knee joint 6033646065 11974 M25.713 [id number] Som Thompson MD [facility] [place] [address] [place] [id number] 08/13/2024 10:53:22 08/13/2024 12:17:42 Pain of left knee joint 9298047415 68537 M25.562 Osteoarthr itis of left knee joint 5136993392 47635 M17.12 Health Concerns Section Related Observation LastModified by Organization Detai ls LastModified Time None Recorded Concern Status LastModified by Organization Details LastModified Time None Recorded Advance Directives Directive None Recorded Payers Insurance Date Sequence Insurance Name Policy Number Policy Day Covered Member ID Day Member ID Guarantor Name 08/12/2024 1 [place] Jeannine Ferreira [id number] Jeannnie Ferreira 08/13/2024 2 FOR LIFE ( - MEDICARE SUPPLEMENT) Jeannine Ferreira [id number] Jeannine Ferreira OBGyn Episode No OBEpisode recorded.
--- OUTSIDE RECORDS SUMMARY | 2024-11-11 12:22 | XMS_ITS | Clinical Summary ---
Author Organization [facility] Address [address] [place] [address] Care Team Providers Care Route Service Representative Name Role Phone Ayden Goodrich MD Primary Care Provider [phone] Allergies Active Allergy Reactions Criticality Noted Date [...] 0 09/15/2021 Body mass index 40.0-44.9, adult ([facility]) 09/15 Mixed hyperlipidemia 04/11/2021 Palpitations 01/28/2021 ZARATE (dyspnea on exertion) 01/28/2021 Chest tightness 01/28/2021 Essential hypertension 01/28/2021 Arthralgia of hip 12/21/2016 Back pain 10/16/2013 Joint pain 10/16/2013 Mixed stress and urge urinary incontinence 10/16 Myofascial pain 10/16/2013 Proctocele 10/16/2013 Urge incontinence of urine 10/16/2013 Surgical History Surgery Date Site/Laterality Comments [place] DILATION & CURETTAGE DX&/THER NONOBSTETRIC Dilation And Curettage - (Added by TW Conv) [place] LIG/TRNSXJ FLP TUBE ABDL/VAG APPR UNI/BI Tubal Ligation - (Added by TW Conv) [place] TONSILLECTOMY PRIMARY/SECONDARY <AGE 12 Tonsillectomy - (Added by TW Conv) FRACTURE SURGERY 05/14/2002 - 05/13/2003 SPINE SURGERY 05/14/2002 - 05/13/2003 Medical History Medical History Date Comments Cramp and spasm Leg cramps - (Ad ded by TW Conv) Personal history of other di seases of the nervous system and sense organs History of tinnitu s - (Added by TW Conv) Other specified soft tissue disorders Leg swelling - (Added by TW Conv) Urge incontinence Urgency incont inence - (Added by TW Conv) Personal history of other di seases of the musculoskeletal system and connective tissue History of backache - (Added by TW Conv) Pain in joint Joint pain - (Ad ded by TW Conv) Nervousness Nervousness - (A dded by TW Conv) Personal history of other (h ealed) physical injury and trauma History of back injury - (A dded by TW Conv) Personal history of other di seases of the nervous system and sense organs History of glaucom a - (Added by TW Conv) Hypercholesteremia Obesity Depression Arthritis July 2020 Glaucoma 2004 Family History Medical History Relation Name Comments Alcohol abuse Brother 1 Carlin Alcohol abuse Brother 2 Chapin Alcohol abuse Father Ismael Diabetes Father Ismael Family history of diabetes mellitus - (Added by TW Conv) Heart disease Father Ismael Family history of cardiac disorder - (Added by TW Conv) Hypertension Father Ismael Family history of hypertension - (Added by TW Conv) Stroke Father Ismael Family history of cerebrovascular accident - (Added by TW Conv) Arthritis Maternal Grandmother Rylee Diabetes Mother Kyra Family history of diabetes mellitus - (Added by TW Conv) Enuresis Mother Kyra Urinary inconti nence - (Added by TW Conv) Heart disease Mother Kyra Family history of cardiac disorder - (Added by TW Conv) Hyperlipidemia Mother Kyra Hypertension Mother Kyra Family history of hypertension - (Added by TW Conv) Obesity Mother Kyra Vision loss Mother Kyra Heart attack Mother's Brother Dulce Maria Alcohol abuse Other Arthritis Other Cancer Other Relation Name Status Comments Brother 1 Carlin Brother 2 Chapin Father Ismael Maternal Grandmother Rylee Mother Kyra Mother's Brother Dulce Maria Other Social History Tobacco Use Types Packs/Day Years [...] on file Legal Sex Female 6:28 AM BEAN SNAPPER Gender Identity Female 01/27/2021 10:14 AM CDT Sexual Orientation Straight 01/27/2021 10 :14 AM CDT Obstetrics History Last Filed Vital Signs Vital Sign Reading Time Taken Comments Blood Pressure 108/82 05/28/2024 9:41 AM BEAN SNAPPER Pulse 75 05/28/2024 9:41 AM BEAN SNAPPER Temperature - - Respiratory Rate 18 05/28/2024 9:41 AM BEAN SNAPPER Oxygen Saturation 98% 05/26/2024 9:01 AM BEAN SNAPPER Inhaled Oxygen Concentration - - Weight 107 kg (236 lb) 05/28/2024 9:41 AM BEAN SNAPPER Height 157.5 cm (5' 2) 05/28/2024 9:41 AM BEAN SNAPPER Body Mass Index 43.16 05/28/2024 9:41 AM BEAN SNAPPER Plan of Treatment Health Maintenance Due Date Last Done Comments Colon Cancer Screening-Colonoscopy 1950 Depression Screening 1950 Hepatitis C Screening 1950 Osteoporosis Screening-Bone Density Scan 1949 Hepatitis B Screening 1967 Zoster Vaccine (2 of 3) 01/25/2012 11/30/2011 Well Visit 65+ 2014 DTaP/Tdap/Td Vaccine (2 - Td or Tdap) 01/22/2020 01/21/2010, 08/05/1999 Pneumococcal vaccine 65+ (3 of 3 - PCV20 or PCV21) 02/10/2020 02/09/2015, 02/13/2012 Fall Risk Assessment 05/19/2023 05/19/2022, 02/17/20 22 Covid-19 Vaccine (2 - 2023-2 5 season) 2024 08/17/2020 Influenza Vaccine (Season Ended) 2025 01/20/2020, 01/31/2019, 01/02/2018, Additional history exists Insurance MEDICARE FOR LIFE MEDICARE FOR LIFE MEDICARE FOR LIFE Member Subscriber Plan / Payer (Ef fective 2018-Present) Name:Jeannine Ferreira Relation to Subscriber:Self Name:Jeannine Ferreira Payer ID:[id number] (NAIC) Group ID:Not on file Type: Address: [place] [phone] Care Teams Route Service Representative Relationship Specialty Start Date End Date Ayden Goodrich MD [address] [place] [address] PCP - General Family Medicine 05/26/24
--- OUTSIDE RECORDS SUMMARY | 2024-11-11 12:22 | XMS_ITS | Clinical Summary ---
Author Organization [facility] Address [address] [place] [address] Care Team Providers Care Info Print Press Operator Name Role Phone Unavailable Primary Care Provider Unavailabl e Social History Tobacco Use Types Packs/Day Years Used Date Smoking Tobacco: Never Assessed Comments Unknown Sex and Gender Information Value Date Recorded Sex Assigned at Not on file Legal Sex Female 10:50 AM BAR USEFUL OR BUSSER Gender Identity Not on file Sexual Orientation Not on file Plan of Treatment Health Maintenance Due Date Last Done Comments DEXA Bone Density 1950 Hepatitis C Virus (HCV) Screening 1950 TdaP Immunization 1949 Colonoscopy 1994 Colorectal Cancer Screening 1994 Cologuard 1999 Immunochemical Fecal Occult Blood 1999 Mammogram 1999 Pneumococcal Immunization (5 0+ years) (1 of 1 - PCV) 1999 Zoster Immunization (1 of 2) 1999 Influenza Immunization (#1) 01/13/202401/13, 01/02/2018, 01/29/2017 SARS-COV-2 Immunization ( season) 2024 04/20/2021, 08/17/2020 Respiratory Syncytial Virus (RSV) Immunization (Adult) (1 - 1-dose 75+ series) 2024 Hepatitis B Immunization Aged Out No longer eligible based on patient's age to complete this topic Meningococcal Immunization (ACWY) Aged Out No longer eligible b ased on patient's age to complete this topic Rotavirus Immunization Aged Out No lo nger eligible based on patient's age to complete this topic
--- NOTE | 2024-11-11 16:04 | REHSTMBS ---
Assessment and note entered by Stephanie Darling, ORACLE TECHNICAL DEVELOPER Modified Barium Swallow Evaluation Feeding Type Recommended Oral Food Consistency Regular, Level 7 Liquid Consistency Thin (0) ST Clinical Summary The patient is 74 yr old female referred for a MBS secondary to reports sticking sensation with meals for approximately 3 months. The patient does report that the ENT did prescribe for omeprazole 1x daily for 2 weeks which had improved the sensation she had been feeling. The patient was positioned in the lateral view and presented the following consistencies: 5cc/tsp thin liquid barium, cup drink of thin liquid barium , pudding mixed with barium paste, and cracker coated with barium paste. Oral Stage: Timely oral preparation and transit was viewed for all consistencies. Pharyngeal Stage: The patient was viewed to have timely swallow initiation without viewed aspiration or penetration across all consistencies . In addition no residual was viewed to remain in the vallecula or pyriform sinus for all consistencies presented. Please see radiology report as the radiologist did complete further assessment of the esophageal function with trials pudding coated with barium paste and sequential drinks of thin liquid barium. No further speech services indicated.
== END 2024-11-11 12:18 | disposition home or self-care (01) ==
PROVIDERS: PCP Emergency Medicine; Visit Provider Otolaryngology
DX: R13.10 Dysphagia, unspecified (principal); K30 Functional dyspepsia
CPT/HCPCS: 74220; 74230; 92611

== ENCOUNTER 2025-01-08 00:37 | Day surgery (SDC) | payer MEDICARE, OTHER, SELFPAY ==
--- OUTSIDE RECORDS SUMMARY | 2024-04-17 05:09 | XMS_ITS | Continuity of Care Document ---
Author Organization [facility] Address [address], [place] [address] [place] [address] Phone Care Team Providers Care Cab Starter Name Role Phone Ayden Goodrich MD Unavailable Unavailable Allergies, Adverse Reactions, Alerts Substance Reaction Status Criticality cephalexin Hives Active No Information Medications Medication Instructions Dosage Effective Dates (start - stop) Status Comments losartan 50 mg tablet take 1 tablet by o ral route every day 50 MG - Active metoprolol succinate ER 25 mg tablet,extended release 24 hr take 1 tablet by oral route every day 25 MG - Active hydralazine 25 mg tablet take 1 tablet by oral route 2 times every day with food 25 MG - Active Procedures Procedure Date OFFICE/OUTPATIENT VISIT, [facility], initial visit OFFICE/OUTPATIENT VISIT, [facility] Advance Directives Directive Yes / No Effective Date File Name No Information Encounters Encounter Description Practice Location Reason(s) For Visit Diagnoses Date Provider Providers Copied on Encounter OFFICE/OUTPA TIENT VISIT, EST [facility], [address] [place], [id number], [place] tel:[phone] [facility] pre-DM (chief complaint) HLP (chief complaint) UTI1 (chief complaint) low d (chief complaint) Mixed hyperlipidemiaHyper glycemiaAcute cystitis without hematuriaOther specified disorder of bone density [address] [facility] [place] [place], [id number] , [place]. tel:[phone] OFFICE/OUTPA TIENT VISIT, [facility], [place], [facility], [address] [place], [place], [id number], tel:[phone] [facility] Medicine physical (chief complaint) Encounter for general adult medical exam w abnormal findingsGERD with esophagitis, without bleedingEssential (primary) hypertensionCardiom yopathyPolyp of colonHyperglycemiaM ixed hyperlipidemia [address], [id number] , [place]. tel:[phone] [facility], [address], [place], [place], [id number], [place] tel:[phone] [facility] No Information [address], [place], [place], [id number] , [place]. tel:[phone] Family History Family Member Type Diagnosis Age At Onset Father Problem DM, HTN Mother Problem DM Father Problem of 68 CVA Brother Problem Alive and well Mother Problem 76 CHF Payers Payer name Insurance type Covered alliance party ID Authoriza tion(s) No Information Social History Type Description Quantity Date Captured Comments Alcohol Use Details No Caffeine Use Details Unknown Tobacco Use Status Current non-smoker Smoking Status Never smoker Sex Female Vital Signs Date / Time: Height Weight BMI Pulse Rate Blood Pressure Temperature Respiratory Rate Body Surface Area Head Circumference BMI percentile Pulse Ox Inhaled Ox 10:12 AM 62.00 in 240.60 lbs 44.0 1 kg/m eter (2) 67 /min 130/72 mm[Hg] 95.4 F 16 /min Chief Complaint And Reason For Visit From encounter dated '04/17/2024 10:09'. pre-DM (chief complaint). Description: Pt is pre-diabetic her A1c is 6.2 Pt denies any polyuria, polydipsia Pt is in a diabetic prevention trial and she is not on any medication. HLP (chief complaint). Description: Pt has HLP Pt could not tolerate statin in the past UTI1 (chief complaint). Description: Pt denies any urinary symptoms Pt has group b strep low d (chief complaint). Description: Pt has low D. Pt denies any fracture Plan Of Treatment Date Type Action Status Referral Ordered: DXA BONE DENSITY, AXIAL ordered History Of Present Illness Encounter Date Complaint History Of Prese nt Illness low d Pt has low D. Pt denies any fracture UTI1 Pt denies any ur inary symptoms Pt has group b strep HLP Pt has HLP Pt co uld not tolerate statin in the past pre-DM Pt is pre-diabet ic her A1c is 6.2 Pt denies any polyuria, polydipsia Pt is in a diabetic prevention trial and she is not on any medication. physical Pt needs annual physical. Pt has HTN and enlarged left ventricle and she is seeing cardiology. Pt is on metoprolol, losartan and hydralazine and her bp is ok Pt denies any chest pain or sob. Pt has chronic reflux esophagitis with HH with esophageal ring s/p EGD dilation 2022. Pt is noncompliant with PPI Pt denies any GERD or recurrent dysphagia. Pt also has tubular adenoma on colonoscopy last year. Pt denies any GI symptoms Pt denies any other complaints Pt states that she does not like to see doctors unless there is something wrong. she also has HLP and is pre-diabetic and she is in a DM prevention trial. Pt is not on any meds . Instructions Date Instruction Additional Infor mation No Information Assessments Type Assessment Date assessment Mixed hyperlipidemia assessment Hyperglycemia assessment Acute cystitis without hematuria assessment Other specified disorder of bone density Mental Status Date Cognitive Assessment Orientation - [place] ed to time, place, person, situation.
[2024-12-23 15:46] VITALS: BMI 40.1
--- NOTE | 2024-12-23 15:54 | PC.NURSE ---
Report to the Outpatient Waiting Room, entrance under the green pavilion located off [facility], at time __0600am on date _01/08/25 . Planned Procedure Time: _0730am .? Time changes happen often and if your time is changed the preop area will call you the afternoon before. - You and your visitor will be asked to self-screen and do not enter if you have any COVID symptoms. Please call surgeon if you need to reschedule. - A mask is optional within the hospital at this time. Patients may have clear liquids (water, carbonated beverages, clear teas, apple juice) until 3 hours prior to surgery with a maximum of 20 ounces. - No food from midnight until time of surgery and no smoking, or chewing tobacco (or any form of nicotine). No chewing gum, candy or mints. (04:30am) Take only the following medications with a SIP of water on the morning of surgery: Hydralazine and Metoprolol, and take those meds preop meds per Dr Casas two nights before as directed DO NOT STOP ANY OF YOUR OTHER PRESCRIPTION MEDICATIONS PRIOR TO SURGERY EXCEPT THE FOLLOWING Hold all vitamins and supplements for 3 days per anesthesiologist. Medications to discontinue per physician NONE Date to take last dose NONE Please no make-up, nail bulgarian, hairspray, perfume, deodorant, or body powder the day of surgery.? No jewelry (including any body piercings) or valuables the day of surgery, leave them at home.? Please take a shower or bath the night before, or the morning of, surgery with an antibacterial soap.?( Dial- yellow ) Wear comfortable, loose fitting clothing.? - Jewelry must be removed prior to entering the operating room.? Rings and piercings that are not removed may be cut off. - The hospital will not accept responsibility for valuables.? - Please leave all valuables, including medications, at home the day of surgery. If you are going home after surgery, a licensed special needs bus driver must drive you home.? - NO public transportation without another adult if you receive anesthesia. - We recommend that an adult stay with you for 24 hours following discharge. - We also recommend that you do not drive, make important decision, drink alcoholic beverages, or take any drugs that were not prescribed by your health care provider for at least 24 hours after your discharge time. Follow any additional instructions given to you from your surgeon. Telephone instructions given to ___Patient and asked if any additional questions and then verbalized understanding. Patient advised to call surgeon office or pre surgery nurse liaison [phone] if any additional questions.
--- OUTSIDE RECORDS SUMMARY | 2025-01-08 00:40 | XMS_ITS | Continuity of Care Document ---
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 It does not include entries that were removed or entered in error. 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 DoD SEBORRHEIC KERATOSIS Active Condition D oD Alopecia Active Condition DoD vaginal pain Active Condition DoD DERMATOCHALASIS Active Condition DoD GLAUCOMA OPEN-ANGLE LOW TENSION Active Condition DoD Vaccines Prophylactic Need Against Influenza Inactive Condition Do D Need For Vaccination Pneumococcal Inactive Condition DoD ACTINIC KERATOSIS Inactive Condition DoD BUNION LEFT Active Condition DoD NORMAL ROUTINE HISTORY AND PHYSICAL ADULT (18-65) Inactive Condition DoD LUMBAGO Active Condition 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 Inactive Condition DoD CATARACT Active Condition DoD Aftercare Active Condition DoD HEMORRHOIDS INTERNAL Active Condition D oD COLONIC DIVERTICULOSIS Active Condition DoD visit for: screening malignant neoplasm colon Inactive Condition DoD UMBILICAL HERNIA Inactive Condition DoD visit for: routine adult H&P Active Condition DoD Vaccines Prophylactic Need Against DTP Inactive Condition DoD BACKACHE Active Condition DoD VAGINAL DISCHARGE Active Condition DoD GLAUCOMA OPEN-ANGLE Active Condition Do D PREGLAUCOMA OPEN ANGLE WITH BORDERLINE FINDINGS Active Condition DoD blurry vision Active Condition DoD IMPAIRED FASTING GLUCOSE Active Condition DoD ATYPICAL CHEST PAIN Inactive Condition D oD ASTIGMATISM Active Condition DoD ASTIGMATISM - REGULAR Active Condition 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 Zee. DoD difficulty swallowing (dysphagia) Active Condition per pt request will refer to ENT as GI declined to scope her and recommended an ENT consult DoD visit for: preoperative orthopedic exam Inactive Condition Pt is low ri sk for surgery under IV sedation and form filled out to that effect, will be faxed to [facility]. [facility] pain during urination (dysuria) Inactive Condition [facility] abdominal pain above the pubic area (suprapubic) Inactive Condition wet prep negative, will treat for UTI even though UA not convincing. Return if sxs not improved after 48hours of ABX. Rx for Septra DS bid for 3 days written. DoD visit for: administrative purpose Inactive Condition Will get an ESR as pt is concerned that she has kawasaki dz despite that I counseled pt that this was highly unlikely. DoD GENERALIZED ANXIETY DISORDER Active Condition Will switch to wellbutrin per pt request. DoD HYPERKERATOSIS (CORN) RIGHT FIRST TOE Active Condition Pt desires t o be refered to podiatry to discuss options for treatment. [facility] DERMATOLOGY NON-INFECTIOUS NAILS Active Condition Fungal culture negative. Appears to be non-infectious cause of nail tickening. DoD HYPERLIPIDEMIA Active Condition Patie nt desires to try diet and exercise and recheck lipids in 6-12 months. DoD visit for: screening exam malignant neoplasm breast Active Condition Pt counseled on risks and benefits of procedure. Pt's consent on chart. Pt has prescription for bowel prep and will comply with this. [facility] ROUTINE GYNECOLOGICAL EXAM WITH CERVICAL PAP SMEAR Inactive Condition Screening labwork ordered to include FSH/LH to help confirm menopausal status.CT bone density ordered.Mammog ismael to be performed at [place] where last exam was conducted. [facility] DERMATOPHYTOSIS NAILS ONYCHOMYCOSIS Inactive Condition Nail clippings ordered for culture.F/U one month for re-eval and review results. DoD Diagnosis: ICD-10-CM Z65.9 Problem related to unspecified psychosocial circumstances Active Diagnosis [facility] Medications Combined list of outpatient medications from Department of Defense and Veterans Affairs facilities.Medications provided include 1) outpatient medications from the last 15 months, and 2) patient-reported medications. Medication Details Route Status Patient Instructions Prescription Expires Prescription Number Last Dispense Date Ordering Provider Order Date Order Qty Source azelaic acid 15% topical gel APPLY TO FACE TWICE DAILY., # 50 g, 2 total refill(s ), Acute Complet ed 01/24/2023 2 2022 50.0 Ambulat ory Pharmac y hydrALAZINE 50 mg oral tablet TAKE ONE TABLET TWICE DAILY, # 60 EA, 2 total refill(s ), Acute Complet ed 01/01/2023 2 2022 60.0 Ambulat ory Pharmac y losartan 50 mg tablet See Instruct ions, # 90 EA, 2 total refill(s ), Hard Stop Discont inued 02/08/2023 3 2022 90.0 Ambulat ory Pharmac y metoprolol succinate ER 25 mg/24 hour tablet 25 mg, Oral, Daily, # 30 EA, 11 total refill(s ), Hard Stop Oral (given by mouth) Discont inued 02/08/2023 3 2022 30.0 Ambulat ory Pharmac y omeprazole DR 40 mg capsule 40 mg, Oral, Daily, # 30 EA, 2 total refill(s ), Hard Stop Oral (given by mouth) Complet ed 12/13/2023 3 2023 30.0 Ambulat ory Pharmac y polyethylen e glycol 3350 with electrolyte Susp [4000mL] See Instruct ions, Oral, # 4000 mL, 0 total refill(s ), Hard Stop Oral (given by mouth) Complet ed 12/01/2023 3 2023 4000.0 Ambulat ory Pharmac y timolol maleate 0.5% eye drops [10mL] See Instruct ions, Eye-Both , # 10 mL, 3 total refill(s ), Hard Stop Both eyes Complet ed 11/30/2023 4 2023 10.0 Ambulat ory Pharmac y timolol maleate 0.5% ophthalmic solution INSTILL 1 DROP IN EACH EYE EVERY MORNING DIRECTED , # 10 mL, 3 total refill(s ), Acute Discont inued 12/13/2022 3 2022 10.0 Ambulat ory Pharmac y triamcinolo ne 0.1% cream [454g] See dose instruct ions in comments , # 454 g, 1 total refill(s ), Acute Complet ed 08/21/2023 3 2023 454.0 Ambulat ory Pharmac y Allergies, Adverse Reactions, Alerts Combined list of allergies from Department of Defense and Veterans Affairs facilities. It does not include entries that were removed or entered in error. Substance Category Reaction Severity Reaction type Status Date Reported Comments Source CEPHALOSPORI NS Drug allergy (disorder) Unknown active [address] [place] [address] ([facility]) cephalospori ns Drug allergy Urticaria (Hives), Unknown Moderate Active [facility] PENICILLINS Drug allergy (disorder) Unknown active [address] [place] [address] ([facility]) penicillins Drug intolerance Unknown Unknown Active 5 GI UPSET [facility] Immunizations Combined list of available immunizations from the Department of Defense and Veterans Affairs facilities. Immunization Series Date Given Administered By Site Reaction Lot Number CVX Code Drug Logistics Program Manager Status Comments Source influenza, high-dose, quadrivalent 2020 ALUL, () Not Given influenza , high-dose , quadrival ent DoD influenza, high-dose, quadrivalent 2019 ALUL, () Not Given influenza , high-dose , quadrival ent DoD influenza, seasonal,high dose-pf 2018 135 sanofi pasteur complet ed influenza , seasonal, high dose-pf 01/31/19 Given Ambulat ory Pharmac y influenza, seasonal,high dose-pf 2017 135 sanofi pasteur complet ed influenza , seasonal, high dose-pf 01/02/18 Given Ambulat ory Pharmac y influenza, seasonal, injectable-pf 2015 zzLef t Arm [id number] Seqirus complet ed influenza , seasonal, injectabl e-pf 03/15/16 Given Ambulat ory Pharmac y Influenza, seasonal, injectable, preservative free 1 2015 Unknown, Provider [id number] [employer] (SEQ) complet ed Influenza , seasonal, injectabl e, preservat aleida free DoD influenza, injectable, quadrivalent- pf 2014 zzLef t Arm [id number] 150 Glax[employer]SmithK[employer] ne complet ed influenza , injectabl e, quadrival ent-pf 02/09/15 Given Ambulat ory Pharmac y pneumococcal 13-valent conjugate (PCV13) [id number] [employer] complet ed pneumococ tomas 13-valent conjugate (PCV13) 02/09/15 Given Ambulat ory Pharmac y pneumococcal conjugate vaccine, 13 valent 1 2014 Unknown, Provider [id number] Luanne (RAJAN) complet ed pneumococ tomas conjugate vaccine, 13 valent DoD Influenza, injectable, quadrivalent, preservative free 1 2014 Unknown, Provider [id number] [address] [place] [address] (SKB) complet ed Influenza , injectabl e, quadrival ent, preservat aleida free DoD Influenza, seasonal, injectable 2013 VIDA VILLARREAL () Not Given Influenza , seasonal, injectabl e DoD influenza, seasonal, injectable 2011 zzRig Arm [id number] sanofi pasteur complet ed influenza , seasonal, injectabl e 02/13/12 Given Ambulat ory Pharmac y pneumococcal polysaccharid e, 23 valent 2011 zzLef t Arm [id number] Merck [employer] Company Inc complet ed pneumococ tomas polysacch aride, 23 valent 02/13/12 Given Ambulat ory Pharmac y pneumococcal polysaccharid e vaccine, 23 valent 1 2011 Unknown, Provider [id number] 33 Merck (MSD) complet ed pneumococ tomas polysacch aride vaccine, 23 valent DoD Influenza, seasonal, injectable 3 2011 Unknown, Provider [id number] 141 Sanofi Pasteur (PMC) complet ed Influenza , seasonal, injectabl e DoD zoster vaccine live 2011 zzLef t Arm [id number] 121 [employer] Inc complet ed zoster vaccine live 11/30/11 Given Ambulat ory Pharmac y zoster vaccine, live 1 2011 Unknown, Provider [id number] Merck (MSD) complet ed zoster vaccine, live DoD influenza, seasonal, injectable 2010 zzRig ht Arm [id number] 141 sanofi pasteur complet ed influenza , seasonal, injectabl e 02/21/11 Given Ambulat ory Pharmac y Influenza, seasonal, injectable 3 2010 Unknown, Provider [id number] 141 Sanofi Pasteur (PMC) complet ed Influenza , seasonal, injectabl e DoD tetanus, diphtheria, acellular pertu is 2009 zzLef t Arm [id number] 115 [employer] complet ed tetanus, diphtheri a, acellular pertussis 01/21/10 Given Ambulat ory Pharmac y tetanus toxoid, reduced diphtheria toxoid, and acellular pertu is vaccine, adsorbed 1 2009 Unknown, Provider [id number] [address] [place], [place] [address] complet ed tetanus toxoid, reduced diphtheri a toxoid, and acellular pertussis vaccine, adsorbed DoD influenza virus vaccine,split 2004 zzRig ht Arm [id number] 15 sanofi pasteur complet ed influenza virus vaccine,s plit 04/19/05 Given Ambulat ory Pharmac y influenza virus vaccine, split virus (incl. purified surface antigen)-reti red CODE 1 2004 Unknown, Provider [id number] 15 Sanofi Pasteur (PMC) complet ed influenza virus vaccine, split virus (incl. purified surface antigen)- retired CODE [facility] tetanus-dipht h toxoids (Td) adult/adol 1999 zzLef t Arm [id number] 09 [employer] complet ed tetanus-d iphth toxoids (Td) adult/ado l 08/05/99 Given Ambulat ory Pharmac y tetanus and diphtheria toxoids, adsorbed, preservative free, for adult use (2 Lf of tetanus toxoid and 2 Lf of diphtheria toxoid) 1 1999 Unknown, Provider [id number] 09 [employer] (CON) complet ed tetanus and diphtheri a toxoids, adsorbed, preservat aleida free, for adult use (2 Lf of tetanus toxoid and 2 Lf of diphtheri a toxoid) DoD Encounters Combined list of: 1) Encounters from Department of Veterans Affairs facilities going backup to the last 18 months, not all VA inpatient encounters are included; 2) Encounters from the Department of Defense facilities going backup to 280 months. Location Location Details Encounter Type Encounter Number Reason For Visit Attending Provider ADM Date DC Date Status Disposition Source [address] [place] [address] Darryl BROWER ([facility])(Sco tt [facility] FAMRES Tm Blue) OUTPATIENT [id number] 54 Y/O PHYSICA L/MATHIEU GOMEZ 03/15 Released w/o Limitations [address] [place] [address] Darryl BROWER ([facility])(S cott [facility] FAM[facility] Tm Blue) [address] [place] [address] Darryl BROWER [facility]co tt [facility] Fam Res Tm Green) OUTPATIENT [id number] C-Scope Apr 17 GRAND Rajesh ELKINS 04/11 Released w/o Limitations [address] [place] [address] Darryl BROWER ([facility])(S cott [facility] Fam Res Tm Green) [address] [place] [address] Darryl BROWER ([facility])(Sco tt [facility] FAMRES Tm Blue) OUTPATIENT [id number] f/u labs/te st results per MATHIEU Wallace 04/19 Released w/o Limitations [address] [place] [address] Darryl BROWER ([facility])(S cott [facility] FAM[facility] Tm Blue) [address] [place] [address] Darryl ESCOTOB ([facility])(Sco tt [facility] Tm Blue) OUTPATIENT [id number] right big toe joint, need referra l for surg, glands in neck needed ck up EVIE SELLERS 04/24 Released w/o Limitations [address] [place] [address] Darryl BROWER ([facility])(S cott [facility] Tm Blue) [address] [place] [address] Darryl BROWER ([facility])(Sco tt [facility] FAMRES Tm Blue) OUTPATIENT [id number] UTI CARLOS RAGSDALE 05/01 Released w/o Limitations [address] [place] [address] Darryl BROWER ([facility])(S cott [facility] Tm Blue) [address] [place] [address] Darryl BROWER ([facility])(Sco tt [facility] FAM[facility] Tm Blue) OUTPATIENT [id number] BLADDER DISCOMF ROME KIRK 05/02 Released w/o Limitations [address] [place] [address] Darryl BROWER ([facility])(S cott [facility] FAM[facility] Tm Blue) [address] [place] [address] Darryl BROWER ([facility])(Sco tt [facility] FAM[facility] Tm Blue) OUTPATIENT [id number] pre op for surgery DEN HUERTA 06/15 Released w/o Limitations [address] [place] [address] Darryl BROWER ([facility])(S cott [facility] Tm Blue) [address] [place] [address] Darryl BROWER ([facility])(Sco tt [facility] Fam Res Tm Green) OUTPATIENT [id number] cold flu sxs sinus inf? 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) OUTPATIENT [id number] PAP ADAIRDANETTE HU Mercedes 01/26 Released w/o Limitations [employer] ([facility])(G ynecolo gy) [facility] [employer] ([facility]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) TELE CONSULT [id number] Lab/CT results ADAIR DANETTE Long 01/30 [employer] ([facility])(G ynecolo gy) [employer] ([facility])(Opt ometry) OUTPATIENT [id number] blurred vison/f u JEREMY BORJA W 02/24 Released w/o Limitations [employer] ([facility])(O ptometr y) [facility] [employer] ([facility])(Sco tt [facility] Fam Res Tm Green) OUTPATIENT [id number] numerou s symptom s indicat DAYANA Varela 06/30 Released w/o Limitations [employer] ([facility])(S cott [facility] Fam Res Tm Green) [facility] [employer] ([facility])(Opt ometry) OUTPATIENT [id number] c/o blurry va x past 24 hours MAINE HOLLOWAY 02/11 Released w/o Limitations [facility] [employer] ([facility])(O ptometr y) [facility] [employer] ([facility])(Opt ometry) OUTPATIENT [id number] routine eye exam MAINE HOLLOWAY 02/18 Released w/o Limitations [employer] ([facility])(O ptometr y) [facility] [employer] ([facility])(Opt ometry) OUTPATIENT [id number] 24-2 and repeat oct MAINE HOLLOWAY 03/18 Released w/o Limitations [facility] [employer] ([facility])(O ptometr y) [facility] [employer] ([facility])(Opt ometry) OUTPATIENT [id number] 2 weeks follow- up Gonio and IOP Check MAINE HOLLOWAY 04/15 Released w/o Limitations [facility] [employer] ([facility])(O ptometr y) [employer] ([facility])(Opt ometry) OUTPATIENT [id number] f/u dfe, disc photos MAINE HOLLOWAY 06/11 Released w/o Limitations [employer] ([facility])(O ptometr y) [employer] ([facility])(Opt ometry) OUTPATIENT [id number] HVF -2 MAINE HOLLOWAY 10/27 Released w/o Limitations [employer] ([facility])(O ptometr y) [employer] ([facility])(Opt ometry) OUTPATIENT [id number] repeat 24-2 MAINE HOLLOWAY 10/28 Released w/o Limitations [facility] [employer] ([facility])(O ptometr y) [facility] [employer] ([facility])(Opt ometry) OUTPATIENT [id number] HVF OCT MAINE HOLLOWAY 11/22 Released w/o Limitations [facility] [employer] ([facility])(O ptometr y) [facility] [employer] ([facility])(Opt ometry) OUTPATIENT [id number] MAINE HOLLOWAY 12/20 Released w/o Limitations [facility] [employer] ([facility])(O ptometr y) [facility] [employer] ([facility])(Sco tt [facility] Fam Res Tm Green) OUTPATIENT [id number] low back pain, urinary frequen cy, crampy/ achy pelvic region DERRICK DUONG 12/27 Released w/o Limitations [facility] [employer] ([facility])(S cott [facility] Fam Res Tm Green) [facility] [employer] ([facility])(Sco tt [facility] Fam Res Tm Green) OUTPATIENT [id number] WELL WOMAN/6 [id number] MARIE MELGAR 01/21 Released w/o Limitations [facility] [employer] ([facility])(S cott [facility] Fam Res Tm Green) [facility] [employer] ([facility])(Sco tt [facility] Fam Res Tm Green) OUTPATIENT [id number] SCREENI NG C-SCOPE 2ND FLOOR SCOT TIARA ARMSTRONG 03/02 Released w/o Limitations [employer] ([facility])(S cott [facility] Fam Res Tm Green) [employer] ([facility] TELE CONSULT [id number] Call Back for C-Scope on - LACIE Luna 03/02 Released to [employer] ([facility])(S [facility] FAMRES Tm Blue) [facility] [employer] ([facility])(Opt ometry) OUTPATIENT [id number] eye exam MAINE HOLLOWAY 04/06 Released w/o Limitations [employer] ([facility])(O ptometr y) [facility] [employer] ([facility])(Opt ometry) OUTPATIENT [id number] [facility] 24-2 MAINE HOLLOWAY 07/05 Released w/o Limitations [employer] ([facility])(O ptometr y) [facility] ([facility])(Sco tt [facility] Fam Res Tm Green) TELE CONSULT [id number] referra jonathan Alberto 4297 - [facility] MINERVA APARICIO 11/23 [facility] [employer] ([facility])(S [facility] Fam Res Tm Green) [facility] [employer] ([facility])(Opt ometry) OUTPATIENT [id number] f/u for glaucom a/oct ELAYNE BORJA 03/01 Released w/o Limitations [employer] ([facility])(O ptometr y) [facility] [employer] ([facility])(Opt ometry) OUTPATIENT [id number] red eye BHARGAVI DAVIS 05/24 Released w/o Limitations [employer] ([facility])(O ptometr y) [facility] [employer] ([facility])(Opt ometry) OUTPATIENT [id number] f/u for medical f/u BHARGAVI DAVIS 05/31 Released w/o Limitations [facility] [employer] ([facility])(O ptometr y) [facility] [employer] ([facility])(Opt ometry) OUTPATIENT [id number] VF and OCT ELAYNE BORJA 08/14 Released w/o Limitations [facility] [employer] ([facility])(O ptometr y) [address] [place] [address] [employer] ([facility])(Opt ometry) TELE CONSULT [id number] Notes Entered by: JAQUI HERNADEZ 28 Nov 2011 1103 ------- ------- ------- ------- -- Refill on Timolol Maleate 0.05% DORON ESPARZA 11/[address] [place] [address] [employer] ([facility])(O ptometr y) [address] [place] [address] [employer] ([facility])(Sco tt [facility] Fam Res Tm Green) OUTPATIENT [id number] Annual F/U VIET BELL 11/29 Released w/o Limitations [address] [place] [address] [employer] ([facility])(S cott [facility] Fam Res Tm Green) [address] [place] [address] [employer] [facility]Sco tt [facility] Fam Res Tm Green) TELE CONSULT [id number] TIARA AGUILAR 01/[address] [place] [address] [employer] [facility]S cott [facility] Fam Res Tm Green) [address] [place] [address] [employer] [facility])(Sco tt [facility] Fam Res Tm Green) OUTPATIENT [id number] pre op VIET BELL 02/12 Released w/o Limitations [address] [place] [address] [employer] ([facility])(S cott [facility] Fam Res Tm Green) [address] [place] [address] [employer] [facility])(Opt ometry) OUTPATIENT [id number] glaucom a routine ,vf,oct ELAYNE BORJA 03/05 Released w/o Limitations [address] [place] [address] [employer] ([facility])(O ptometr y) [address] [place] [address] [employer] ([facility])(Opt ometry) OUTPATIENT [id number] 24-2 and OCT ELAYNE BORJA 12/09 Released w/o Limitations [address] [place] [address] [employer] ([facility])(O ptometr y) [address] [place] [address] [employer] ([facility])(Sco tt [facility] Fam Res Tm Green) OUTPATIENT [id number] well woman exam CHANDAN GAINES 03/03 Released w/o Limitations [address] [place] [address] [employer] ([facility])(S cott [facility] Fam Res Tm Green) [address] [place] [address] Darryl BROWER [facility])(Garett matology) OUTPATIENT [id number] ACTINIC KERATOS IS DARRYL RITCHIE 03/21 Released w/o Limitations [address] [place] [address] Darryl [facility])(D ermatol ogy) [address] [place] [address] Darryl [facility])(Garett matology) OUTPATIENT [id number] F/U DARRYL RITCHIE 06/03 Released w/o Limitations [address] [place] [address] Darryl [facility])(D ermatol ogy) [address] [place] [address])(Opt ometry) OUTPATIENT [id number] glaucom a pt routine exam SHERLYN DAVIS 06/03 Released w/o Limitations [address] [place] [address] Darryl [facility])(O ptometr y) [address] [place] [address] Darryl [facility] TELE CONSULT [id number] Notes Entered by: LOGAN IRVIN 04 Jul 2013 1054 ------- ------- ------- ------- -- Network Results - Physica l Therapy 4 CHANDAN GAINES 07/[address] [place] [address] Darryl [facility])(S cott [facility] FAMRES Tm Blue) [address] [place] [address] Darryl [facility]Sco tt [facility] Res Tm Red) OUTPATIENT [id number] f/u reeval CHANDAN GAINES 08/20 Released w/o Limitations [address] [place] [address] Darryl [facility]S cott [facility] Fam Res Tm Red) [address] [place] [address] Darryl [facility])(Sco tt [facility] Fam Res Tm Green) TELE CONSULT [id number] Notes Entered by: CALLI PELAEZ 28 Aug 2013 1556 ------- ------- ------- ------- -- Rad results CHANDAN GAINES 08/[address] [place] [address] Darryl [facility])(S cott [facility] Fam Res Tm Green) [address] [place] [address] Darryl [facility]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) OUTPATIENT [id number] RECTGONZALES VILLAGOMEZ 09/12 Released w/o Limitations [address] [place] [address] Darryl BROWER ([facility])(G ynecolo gy) [address] [place] [address] Darryl ESCOTO ([facility])(Sco tt [facility] Fam Res Tm Green) OUTPATIENT [id number] LumMARIKA Fallon 09/26 Released w/o Limitations [facility] Darryl ESCOTOB ([facility])(S cott [facility] Fam Res Tm Green) [address] [place] [address] Darryl [facility]Sco tt [facility] Fam Res Tm Red) TELE CONSULT [id number] Notes Entered by: PREETHI PATRICIA 17 Oct 2013 1017 ------- ------- ------- ------- -- Pt needs pt brianna fischer in dr becerra ers CHANDAN Mauricio 10/[address] [place] [address] Darryl ESCOTO ([facility] [facility] Fam Res Tm Red) [address] [place] [address] Darryl [facility]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) TELE CONSULT [id number] Notes Entered by: LIZBET MORTON 03 Nov 2013 1141 ------- ------- ------- ------- -- Network Results -GYNECO LOGY SURGERY 10/16/13 GONZALES GONSALES 11/[address] [place] [address] Darryl ESCOTO ([facility])(G ynecolo gy) [address] [place] [address] Darryl [facility])(Opt ometry) OUTPATIENT [id number] 6mth glaucSHERLYN Mckeon 11/26 Released w/o Limitations [address] [place] [address] Darryl ESCOTO ([facility])(O ptometr y) [address] [place] [address] Darryl B [facility]Min or Procedure Clinic) OUTPATIENT [id number] Battlef ield / back and hip pain. CANDY HERNANDEZ 12/23 Released w/o Limitations [address] [place] [address] Darryl ESCOTOB ([facility])(M inor Procedu re Clinic) [address] [place] [address] Darryl [facility])(Opt ometry) TELE CONSULT [id number] Notes Entered by: Jonathan CARPENTER 20 Apr 2014 0920 ------- ------- ------- ------- -- Refill for Timolol SHERLYN DAVIS 04/20[facility] [employer] ([facility])(O ptometr y) [address] [place] [address] [employer] ([facility])(Opt ometry) OUTPATIENT [id number] rt exam/24 -2/oct SHERLYN DAVIS 05/28 Released w/o Limitations [address] [place] [address] [employer] ([facility])(O ptometr y) [address] [place] [address] [employer] ([facility])(Opt ometry) OUTPATIENT [id number] vf/oct/ iop SHERLYN DAVIS 10/20 Released w/o Limitations [address] [place] [address] [employer] ([facility])(O ptometr y) [address] [place] [address] [employer] ([facility])(Opt ometry) OUTPATIENT [id number] 24-2/oc t/iop SHERLYN DAVIS 02/09 Released w/o Limitations [address] [place] [address] [employer] ([facility])(O ptometr y) [address] [place] [address] [employer] ([facility])(Opt ometry) OUTPATIENT [id number] rt,hvf, oct SHERLYN DAVIS 05/21 Released w/o Limitations [address] [place] [address] [employer] ([facility])(O ptometr y) [address] [place] [address] [employer] ([facility])(Opt ometry) OUTPATIENT [id number] 24-2/oc SHERLYN Broderick 06/03 Released w/o Limitations [address] [place] [address] [employer] ([facility])(O ptometr y) [address] [place] [address] [employer] ([facility])(Opt ometry) OUTPATIENT [id number] 24-2/oc t/iop AMANDA SMITH 12/07 Released w/o Limitations [address] [place] [address] [employer] ([facility])(O ptometr y) [address] [place] [address] [employer] ([facility])(Opt ometry) OUTPATIENT [id number] rt exam/oc t LILIANA RODRIGUEZ 05/24 Released w/o Limitations [address] [place] [address] [employer] ([facility])(O ptometr y) [address] [place] [address] [employer] ([facility]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) OUTPATIENT [id number] [facility] HELEN SHELLEY 06/01 Released w/o Limitations [address] [place] [address] Darryl [facility])(G ynecolo gy) [address] [place] [address] Darryl [facility])(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[employer]) TELE CONSULT [id number] Notes Entered by: BIANKA SPRAGUE 06 Jul 2016 1511 ------- ------- ------- ------- -- results TILA MONROE 07/[address] [place] [address] Darryl [facility])(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 [employer]) [address] [place] [address])(Sco tt [facility] Fam Res Tm Green) TELE CONSULT [id number] Notes Entered by: Patricia KRUGER 08 Jan 2017 1344 ------- ------- ------- ------- -- Network Results - Orthope dic Surgery 12/25/16 ALBERTA JAQUEZ 01/08 Referred for Appointment [address] [place] [address])(S cott [facility] Fam Res Tm Green) [address] [place] [address])(Opt ometry) OUTPATIENT [id number] 24-2,OC T,LILIANA Carpenter 03/12 Released w/o Limitations [address] [place] [address])(O ptometr y) [address] [place] [address])(Opt ometry) TELE CONSULT [id number] Notes Entered by: ELAINE MAN 05 Dec 2017 1350 ------- ------- ------- ------- -- Med renewal /aristeo/Barbara [phone] LILIANA Abdullahi 12/[address] [place] [address])(O ptometr y) [address] [place] [address])(Opt ometry) OUTPATIENT [id number] rt exam per doc LILIANA RODRIGUEZ 02/25 Released w/o Limitations [address] [place] [address] Darryl B [facility])(O ptometr y) [address] [place] [address] [facility]Sco tt [facility] Fam Res Tm Green) OUTPATIENT [id number] 9 back irritat ion/red / HEMANTH CASE 04/14 Released w/o Limitations [address] [place] [address] Darryl BROWER ([facility])(S cott [facility] Fam Res Tm Green) [address] [place] [address] Darryl [facility])(Sco tt [facility] Fam Res Tm Green) OUTPATIENT [id number] 9 punch biopsy HEMANTH CASE 04/15 Released w/o Limitations [address] [place] [address] Darryl [facility])(S cott [facility] Fam Res Tm Green) [address] [place] [address] Darryl [facility])(Sco tt [facility] FAMRES Tm Blue) TELE CONSULT [id number] Notes Entered by: Suzette FIELD 01 May 2019 1606 ------- ------- ------- ------- -- Patholo gy results availab le for review. HEMANTH CASE 05/01 Released to Self [facility] [address] [place] [address] Darryl [facility]S [facility] FAMRES Tm Blue) [facility] Outpatient Encounter [id number] 07/29 [facility] N [facility] PT EDUCATION NOC INDIVID [id number] Diagnos is: ICD-10- CM Z65.9 Problem related to unspeci fied psychos ocial circums PHYLLIS Dunn 08/04 [facility] N [facility] Outpatient Encounter [id number] ALLYSON ZAPIEN 09/16 [facility] N Procedures Combined list of: 1) Procedures from Department of Veterans Affairs facilities going back up to thelast 18 months, not all VA non-surgical procedures are included; 2) All procedures from the Department of Defense facilities. Procedure Procedure Type Code Date Perfomer Comments Sourc e No data available for this section [facility] PUNCH BIOPSY OF SKIN (INCLUDING SIMPLE CLOSURE, WHEN PERFORMED); SINGLE LESION 12/04/2 019 DoD DETERMINATION OF REFRACTIVE STATE 018 DoD SCANNING COMPUTERIZED OPHTHALMIC DIAGNOSTIC IMAGING, POSTERIOR SEGMENT, WITH INTERPRETATION AND REPORT, UNILATERAL OR BILATERAL; RETINA 017 DoD DETERMINATION OF REFRACTIVE STATE 017 DoD SCANNING COMPUTERIZED OPHTHALMIC DIAGNOSTIC IMAGING, POSTERIOR SEGMENT, WITH INTERPRETATION AND REPORT, UNILATERAL OR BILATERAL; OPTIC NERVE 016 DoD SCANNING COMPUTERIZED OPHTHALMIC DIAGNOSTIC IMAGING, POSTERIOR SEGMENT, WITH INTERPRETATION AND REPORT, UNILATERAL OR BILATERAL; OPTIC NERVE 016 DoD DETERMINATION OF REFRACTIVE STATE 016 DoD SCANNING COMPUTERIZED OPHTHALMIC DIAGNOSTIC IMAGING, POSTERIOR SEGMENT, WITH INTERPRETATION AND REPORT, UNILATERAL OR BILATERAL; OPTIC NERVE 015 DoD SCANNING COMPUTERIZED OPHTHALMIC DIAGNOSTIC IMAGING, POSTERIOR SEGMENT, WITH INTERPRETATION AND REPORT, UNILATERAL OR BILATERAL; OPTIC NERVE 015 DoD FAMILY PSYCHOTHERAPY (CONJOINT PSYCHOTHERAPY) (WITH PATIENT PRESENT), 50 MINUTES DoD FAMILY PSYCHOTHERAPY (CONJOINT PSYCHOTHERAPY) (WITH PATIENT PRESENT), 50 MINUTES 015 DoD SCANNING COMPUTERIZED OPHTHALMIC DIAGNOSTIC IMAGING, POSTERIOR SEGMENT, WITH INTERPRETATION AND REPORT, UNILATERAL OR BILATERAL; OPTIC NERVE 015 DoD FAMILY PSYCHOTHERAPY (CONJOINT PSYCHOTHERAPY) (WITH PATIENT PRESENT), 50 MINUTES 014 DoD FAMILY PSYCHOTHERAPY (CONJOINT PSYCHOTHERAPY) (WITH PATIENT PRESENT), 50 MINUTES 014 DoD FAMILY PSYCHOTHERAPY (CONJOINT PSYCHOTHERAPY) (WITH PATIENT PRESENT), 50 MINUTES 014 DoD FAMILY PSYCHOTHERAPY (CONJOINT PSYCHOTHERAPY) (WITH PATIENT PRESENT), 50 MINUTES 014 DoD ACUPUNCTURE, 1 OR MORE NEEDLES; WITHOUT ELECTRICAL STIMULATION, INITIAL 15 MINUTES OF PERSONAL ONE-ON-ONE CONTACT WITH THE PATIENT 014 DoD FAMILY PSYCHOTHERAPY (CONJOINT PSYCHOTHERAPY) (WITH PATIENT PRESENT), 50 MINUTES 014 DoD SCANNING COMPUTERIZED OPHTHALMIC DIAGNOSTIC IMAGING, POSTERIOR SEGMENT, WITH INTERPRETATION AND REPORT, UNILATERAL OR BILATERAL; OPTIC NERVE 014 DoD FAMILY PSYCHOTHERAPY (CONJOINT PSYCHOTHERAPY) (WITH PATIENT PRESENT), 50 MINUTES 014 DoD FAMILY PSYCHOTHERAPY (CONJOINT PSYCHOTHERAPY) (WITH PATIENT PRESENT), 50 MINUTES 014 DoD FAMILY PSYCHOTHERAPY (CONJOINT PSYCHOTHERAPY) (WITH PATIENT PRESENT), 50 MINUTES 014 DoD ACUPUNCTURE, 1 OR MORE NEEDLES; WITHOUT ELECTRICAL STIMULATION, INITIAL 15 MINUTES OF PERSONAL ONE-ON-ONE CONTACT WITH THE PATIENT [facility] FAMILY PSYCHOTHERAPY (CONJOINT PSYCHOTHERAPY) (WITH PATIENT PRESENT), 50 MINUTES [facility] PSYCHOTHERAPY, 60 MINUTES WITH PATIENT [facility] PSYCHOTHERAPY, 60 MINUTES WITH PATIENT DoD PSYCHOTHERAPY, 60 MINUTES WITH PATIENT [facility] MICROSCOPIC EXAMINATION OF HAIRS PLUCKED OR CLIPPED BY THE EXAMINER (EXCLUDING HAIR COLLECTED BY THE PATIENT) TO DETERMINE TELOGEN AND ANAGEN COUNTS, OR STRUCTURAL HAIR SHAFT ABNORMALITY 014 [facility] DETERMINATION OF REFRACTIVE STATE 014 [facility] DESTRUCTION (EG, LASER SURGERY, ELECTROSURGERY, CRYOSURGERY, CHEMOSURGERY, SURGICAL CURETTEMENT), OF BENIGN LESIONS OTHER THAN SKIN TAGS OR CUTANEOUS VASCULAR PROLIFERATIVE LESIONS; UP TO 14 LESIONS [facility] SCANNING COMPUTERIZED OPHTHALMIC DIAGNOSTIC IMAGING, POSTERIOR SEGMENT, WITH INTERPRETATION AND REPORT, UNILATERAL OR BILATERAL; OPTIC NERVE [facility] DETERMINATION OF REFRACTIVE STATE [facility] INFLUENZA VIRUS VACCINE, TRIVALENT (IIV3), SPLIT VIRUS, 0.5 ML DOSAGE, FOR INTRAMUSCULAR USE [facility] DESTRUCT (EG, LASER SURGERY, ELECTROSURGERY, CRYOSURGERY, CHEMOSURGERY, SURGICAL CURETTEMENT), PREMALIGNANT LESIONS (EG, ACTINIC KERATOSES); 2ND THRU 14 LESIONS, EA (LIST SEP ADDITION CD, 1ST LESION) 012 [facility] VISUAL FIELD EXAM,UNILAT/BI,INTE RP&REP;EXT EXM(EG,GOLDMANN VIS FLD,AT LEAST 3 ISOP PLOT&STAT DET W/IN SNOW 30DEG/QUANT,AUTO THRSH BENJAMIN,OCT G-1,32/42,HUMP VIS FLD ANAL FULL THRSH 30-2,24-2, OR 3060-2) [facility] OPHTHALMOLOGICAL SERVICES: MEDICAL EXAMINATION AND EVALUATION, WITH INITIATION OR CONTINUATION OF DIAGNOSTIC AND TREATMENT PROGRAM; INTERMEDIATE, ESTABLISHED PATIENT [facility] OPHTHALMOLOGICAL SERVICES: MEDICAL EXAMINATION AND EVALUATION, WITH INITIATION OR CONTINUATION OF DIAGNOSTIC AND TREATMENT PROGRAM; INTERMEDIATE, ESTABLISHED PATIENT [facility] DETERMINATION OF REFRACTIVE STATE 011 [facility] TELE ASSESS & MGT SRV PROV QUAL NONPHYS HLTH CARE PRO TO EST PAT,PARENT,GUARD NOT ORIG REL ASSESS & MGT SRV PROV W/IN PREV 7 DAYS NOR LEAD ASSESS & MGT SRV/PX W/IN NXT 24 HR/SOON APT;5-10 MIN MED DIS [facility] SCANNING COMPUTERIZED OPHTHALMIC DIAGNOSTIC IMAGING, POSTERIOR SEGMENT, (EG, SCANNING LASER) WITH INTERPRETATION AND REPORT, UNILATERAL [facility] SCANNING COMPUTERIZED OPHTHALMIC DIAGNOSTIC IMAGING, POSTERIOR SEGMENT, (EG, SCANNING LASER) WITH INTERPRETATION AND REPORT, UNILATERAL [facility] COLORECTAL CANCER SCREENING; COLONOSCOPY ON INDIVIDUAL NOT MEETING CRITERIA FOR HIGH RISK [facility] TETANUS, DIPHTHERIA TOXOIDS AND ACELLULAR PERTUSSIS VACCINE (TDAP), WHEN ADMINISTERED TO INDIVIDUALS 7 YEARS OR OLDER, FOR INTRAMUSCULAR USE [facility] VIS FUNCT SCREEN,AUTOMAT/SEMI -AUTOMAT BILAT QUANT DETERM VISUAL ACUITY,OCULAR ALIGN,COLOR VISION,PSEUDOISOCHR OMAT PLATES,& FIELD VIS (MAY INC ALL/SOME SCRN DETERM FOR CONTRAST SENSITIV,VIS UND GLARE) [facility] OPHTHALMOLOGICAL SERVICES: MEDICAL EXAMINATION AND EVALUATION, WITH INITIATION OR CONTINUATION OF DIAGNOSTIC AND TREATMENT PROGRAM; COMPREHENSIVE, ESTABLISHED PATIENT, 1 OR MORE VISITS [facility] VISUAL FIELD EXAM,UNILAT/BI,INTE RP&REP;EXT EXM(EG,GOLDMANN VIS FLD,AT LEAST 3 ISOP PLOT&STAT DET W/IN SNOW 30DEG/QUANT,AUTO THRSH BENJAMIN,OCT G-1,32/42,HUMP VIS FLD ANAL FULL THRSH 30-2,24-2, OR 30/60-2) [facility] VISUAL FIELD EXAM,UNILAT/BI,INTE RP&REP;EXT EXM(EG,GOLDMANN VIS FLD,AT LEAST 3 ISOP PLOT&STAT DET W/IN SNOW 30DEG/QUANT,AUTO THRSH BENJAMIN,OCT G-1,32/42,HUMP VIS FLD ANAL FULL THRSH 30-2,24-2, OR 30/60-2) [facility] SCANNING COMPUTERIZED OPHTHALMIC DIAGNOSTIC IMAGING, POSTERIOR SEGMENT, (EG, SCANNING LASER) WITH INTERPRETATION AND REPORT, UNILATERAL [facility] GONIOSCOPY (SEPARATE PROCEDURE) [facility] SCANNING COMPUTERIZED OPHTHALMIC DIAGNOSTIC IMAGING, POSTERIOR SEGMENT, (EG, SCANNING LASER) WITH INTERPRETATION AND REPORT, UNILATERAL [facility] SCANNING COMPUTERIZED OPHTHALMIC DIAGNOSTIC IMAGING, POSTERIOR SEGMENT, (EG, SCANNING LASER) WITH INTERPRETATION AND REPORT, UNILATERAL 009 [facility] DETERMINATION OF REFRACTIVE STATE 009 [facility] DETERMINATION OF REFRACTIVE STATE 008 [facility] SCREENING PAPANICOLAOU SMEAR; OBTAINING, PREPARING AND CONVEYANCE OF CERVICAL OR VAGINAL SMEAR TO LABORATORY 008 [facility] DETERMINATION OF REFRACTIVE STATE 008 [facility] SMEAR, PRIMARY SOURCE WITH INTERPRETATION; WET MOUNT FOR INFECTIOUS AGENTS (EG, SALINE, NATHALIE INK, LUCIA PREPS) 006 [facility] UNLISTED SPECIAL SERVICE, PROCEDURE OR REPORT 005 DoD DISTORTION PRODUCT EVOKED OTOACOUSTIC EMISSIONS;COMPREHEN SIVE DIAG EVALUATION (QUANTITATIVE ANALYSIS OF OUTER HAIR CELL FUNCTION,COCHLEAR MAPPING,MINIMUM OF 12 FREQUENCIES),W INTERPRETATION &REPORT 003 [facility] RANGE OF MOTION MEASUREMENTS AND REPORT (SEPARATE PROCEDURE); EACH EXTREMITY (EXCLUDING HAND) OR EACH TRUNK SECTION (SPINE) 003 [facility] EDUCATIONAL SUPPLIES, SUCH BOOKS, TAPES, AND PAMPHLETS, FOR THE PATIENT'S EDUCATION AT COST TO PHYSICIAN OR OTHER QUALIFIED HEALTH FRUIT RAISER 003 DoD SCREENING PAPANICOLAOU SMEAR; OBTAINING, PREPARING AND CONVEYANCE OF CERVICAL OR VAGINAL SMEAR TO LABORATORY 003 DoD Anterior Chamber Angles (Gonioscopy) Anterior Chamber Angles (Gonioscopy) 26126 009 JANE HOLLOWAY Ophthalmological Prior Patient Start Intermediate Level Care Ophthalmological Prior Patient Start Intermediate Level Care 28306 009 JANE HOLLOWAY Visual Hatch Test Extended Examination Visual Hatch Test Extended Examination 55184 009 JANE HOLLOWAY Scanning Computerized Ophthalmic Diagnostic Imaging 009 JANE HOLLOWAY Ophthalmological Prior Patient Start Intermediate Level Care Ophthalmological Prior Patient Start Intermediate Level Care 31238 009 JANE HOLLOWAY Fundus Photography Fundus Photography [id number] 12/13 JANE HOLLOWAY Scanning Computerized Ophthalmic Diagnostic Imaging 009 JANE HOLLOWAY Visual Hatch Test Intermediate Examination Visual Hatch Test Intermediate Examination 55347 JANE HOLLOWAY Determination Of Refractive State Determination Of Refractive State 55719 009 JEWELJANE Ophthalmological Prior Patient Start Comprehensive Care Ophthalmological Prior Patient Start Comprehensive Care 63781 009 PORTILLO HOLLOWAYANDREW Che Visual Hatch Test Intermediate Examination Visual Hatch Test Intermediate Examination 35748 009 PORTILLO HOLLOWAYANDREW Ronit Chinedu Determination Of Refractive State Determination Of Refractive State 78121 009 PORTILLO HOLLOWAYANDREW Che Ophthalmological Prior Patient Start Comprehensive Care Ophthalmological Prior Patient Start Comprehensive Care 75395 009 JEWEL PORTILLOANDREW Ronit Chinedu Determination Of Refractive State Determination Of Refractive State 54479 008 JEREMY BORJA Screening papanicolaou smear; obtaining, preparing and conveyance of cervical or vaginal smear to laboratory 008 DANETTE ADAIR Determination Of Refractive State Determination Of Refractive State 33786 008 VARSHA OATES Ophthalmological New Patient Start Comprehensive Care Ophthalmological New Patient Start Comprehensive Care 73729 008 VARSHA OATES Urinalysis Urinalysis 61791 007 CARLOS RAGSDALE Vaginal Wet Mount Smear Vaginal Wet [place] Smear 20663 006 [place] Ophthalmological Prior Patient Start Comprehensive Care Ophthalmological Prior Patient Start Comprehensive Care 24706 018 LILIANA RODRIGUEZ Determination Of Refractive State Determination Of Refractive State 14929 018 LILIANA RODRIGUEZ Scanning Computerized Ophthalmic Diagnostic Imaging Retina Scanning Computerized Ophthalmic Diagnostic Imaging Retina 62151 017 LILIANA RODRIGUEZ Scanning Computerized Ophthalmic Diagnostic Imaging Optic Nerve Scanning Computerized Ophthalmic Diagnostic Imaging Optic Nerve 50598 017 LILIANA RODRIGUEZ Visual Hatch Test Extended Examination Visual Hatch Test Extended Examination 36218 017 LILIANA RODRIGUEZ Determination Of Refractive State Determination Of Refractive State 77782 017 LILIANA RODRIGUEZ Ophthalmological Prior Patient Start Comprehensive Care Ophthalmological Prior Patient Start Comprehensive Care 67022 017 LILIANA RODRIGUEZ Scanning Computerized Ophthalmic Diagnostic Imaging Optic Nerve Scanning Computerized Ophthalmic Diagnostic Imaging Optic Nerve 85877 017 LILIANA RODRIGUEZ Determination Of Refractive State Determination Of Refractive State 13024 017 LILIANA RODRIGUEZ Ophthalmological Prior Patient Start Comprehensive Care Ophthalmological Prior Patient Start Comprehensive Care 60440 017 LILIANA RODRIGUEZ DoD Scanning Computerized Ophthalmic Diagnostic Imaging Optic Nerve Scanning Computerized Ophthalmic Diagnostic Imaging Optic Nerve 33444 016 LUIS, AMANDA A Chinedu Visual Hatch Test Extended Examination Visual Hatch Test Extended Examination 17471 016 LUIS, AMANDA A Chinedu Ophthalmological Prior Patient Start Intermediate Level Care Ophthalmological Prior Patient Start Intermediate Level Care 95096 016 LUIS, AMANDA A DoD Scanning Computerized Ophthalmic Diagnostic Imaging Optic Nerve Scanning Computerized Ophthalmic Diagnostic Imaging Optic Nerve 46191 016 SHERLYN DAVIS Visual Hatch Test Extended Examination Visual Hatch Test Extended Examination [id number] 016 SHERLYN DAVIS Ophthalmological Prior Patient Start Intermediate Level Care Ophthalmological Prior Patient Start Intermediate Level Care 01913 016 SHERLYN DAVIS Determination Of Refractive State Determination Of Refractive State 49483 016 SHERLYN DAVIS Ophthalmological Prior Patient Start Comprehensive Care Ophthalmological Prior Patient Start Comprehensive Care 63061 016 SHERLYN DAVIS Scanning Computerized Ophthalmic Diagnostic Imaging Optic Nerve Scanning Computerized Ophthalmic Diagnostic Imaging Optic Nerve 68945 015 SHERLYN DAVIS Visual Hatch Test Extended Examination Visual Hatch Test Extended Examination 46344 015 SHERLYN DAVIS Ophthalmological Prior Patient Start Intermediate Level Care Ophthalmological Prior Patient Start Intermediate Level Care 72276 015 SHERLYN DAVIS Scanning Computerized Ophthalmic Diagnostic Imaging Optic Nerve Scanning Computerized Ophthalmic Diagnostic Imaging Optic Nerve 69388 015 SHERLYN DAVIS Visual Hatch Test Extended Examination Visual Hatch Test Extended Examination 11656 015 SHERLYN DAVIS Ophthalmological Prior Patient Start Intermediate Level Care Ophthalmological Prior Patient Start Intermediate Level Care 73428 015 SHERLYN DAVIS Psychiatric Therapy Marital 015 GENET RODGERS Psychiatric Therapy Family (Conjoint) 015 GENET RODGERS Scanning Computerized Ophthalmic Diagnostic Imaging Optic Nerve Scanning Computerized Ophthalmic Diagnostic Imaging Optic Nerve 47143 015 SHERLYN DAVIS Visual Hatch Test Extended Examination Visual Hatch Test Extended Examination 44568 015 SHERLYN DAVIS Determination Of Refractive State Determination Of Refractive State 55785 015 SHERLYN DAVIS Ophthalmological Prior Patient Start Comprehensive Care Ophthalmological Prior Patient Start Comprehensive Care 21172 015 SHERLYN DAVIS [facility] Psychiatric Therapy Marital 014 VISHAL, GENETRUDOLPH Che Psychiatric Therapy Marital 014 VISHAL, GENETRUDOLPH Che Psychiatric Therapy Marital 014 VISHAL, GENET DoD Psychiatric Therapy Marital GENET RODGERS Acupunct One Or More [place] W/O Stimulation Initial 15 Min Acupunct One Or More [place] W/O Stimulation Initial 15 Min 63755 014 CANDY HERNANDEZ [facility] Osteopathic Manip Treatment (OMT) 1-2 Body Regions Involved Osteopathic Manip Treatment (OMT) 1-2 Body Regions Involved 98747 014 CANDY HERNANDEZ [facility] Psychiatric Therapy Marital 014 GENET RODGERS Psychiatric Therapy Marital 014 VISHAL, GENET Che Ophthalmological Prior Patient Start Intermediate Level Care Ophthalmological Prior Patient Start Intermediate Level Care 69215 014 SHERLYN DAVIS [facility] Scanning Computerized Ophthalmic Diagnostic Imaging Optic Nerve Scanning Computerized Ophthalmic Diagnostic Imaging Optic Nerve 15116 014 SHERLYN DAVIS Visual Hatch Test Extended Examination Visual Hatch Test Extended Examination 58857 014 SHERLYN DAVIS Psychiatric Therapy Marital 014 GENET RODGERS Psychiatric Therapy Marital 014 GENET RODGERS Osteopathic Manip Treatment (OMT) 3-4 Body Regions Involved Osteopathic Manip Treatment (OMT) 3-4 Body Regions Involved 22221 014 MARIKA BAILEY [facility] Psychiatric Therapy Marital 014 GENET RODGERS Determination Of Refractive State Determination Of Refractive State 78707 014 SHERLYN DAVIS [facility] Scanning Computerized Ophthalmic Diagnostic Imaging Optic Nerve Scanning Computerized Ophthalmic Diagnostic Imaging Optic Nerve 45747 014 SHERLYN DAVIS Visual Hatch Test Extended Examination Visual Hatch Test Extended Examination 78854 014 SHERLYN DAVIS Ophthalmological Prior Patient Start Comprehensive Care Ophthalmological Prior Patient Start Comprehensive Care 23832 014 SHERLYN DAVIS Microscopic Exam Of Hairs Plucked/Clipped By Examiner Microscopic Exam Of Hairs Plucked/Clipped By Examiner 96493 014 DARRYL RITCHIE Destruction Of Benign Lesion By Any Method Destruction Of Benign Lesion By Any Method 97406 013 DARRYL RITCHIE Destruct Of Premalignant Lesion By Any Method 2nd Through 14 Destruct Of Premalignant Lesion By Any Method 2nd Through 14 20094 013 DARRYL RITCHIE Destruction Of Premalignant Lesion By Any Method One Lesion Destruction Of Premalignant Lesion By Any Method One Lesion 47962 013 DARRYL RITCHIE Scanning Computerized Ophthalmic Diagnostic Imaging Optic Nerve Scanning Computerized Ophthalmic Diagnostic Imaging Optic Nerve 09212 013 ELAYNE BORJA Visual Hatch Test Extended Examination Visual Hatch Test Extended Examination 25711 013 ELAYNE BORJA Ophthalmological Prior Patient Start Intermediate Level Care Ophthalmological Prior Patient Start Intermediate Level Care 77531 013 ELAYNE BORJA Determination Of Refractive State Determination Of Refractive State 45418 012 ELAYNE BORJA Visual Hatch Test Extended Examination Visual Hatch Test Extended Examination 02143 012 ELAYNE BORJA Scanning Computerized Ophthalmic Diagnostic Imaging Optic Nerve Scanning Computerized Ophthalmic Diagnostic Imaging Optic Nerve 19191 012 ELAYNE BORJA Ophthalmological Prior Patient Start Comprehensive Care Ophthalmological Prior Patient Start Comprehensive Care 86783 ELAYNE BORJA Influenza Split Virus Vaccine Age 3+ Years Intramuscular VIET BELL Pneumococcal Polysaccharide Vaccine Adult Dos For Intramusc Pneumococcal Polysaccharide Vaccine Adult Dos For Intramusc 99470 VIET BELL Destruction Of Premalignant Lesion By Any Method One Lesion VIET BELL Destruct Of Premalignant Lesion By Any Method 2nd Through 14 VIET BELL [facility] Visual Hatch Test Extended Examination Visual Hatch Test Extended Examination 75892 012 ELAYNE BORJA Scanning Computerized Ophthalmic Diagnostic Imaging Optic Nerve Scanning Computerized Ophthalmic Diagnostic Imaging Optic Nerve 85952 012 ELAYNE BORJA Ophthalmological Prior Patient Start Intermediate Level Care Ophthalmological Prior Patient Start Intermediate Level Care 26258 012 ELAYNE BORJA Ophthalmological Prior Patient Start Intermediate Level Care Ophthalmological Prior Patient Start Intermediate Level Care 62705 012 BHARGAVI DAVIS Determination Of Refractive State Determination Of Refractive State 74012 011 ELAYNE BORJA Optical Coherence Tomography 011 ELAYNE BORJA Visual Hatch Test Extended Examination Visual Hatch Test Extended Examination 77919 011 ELAYNE BORJA Ophthalmological Prior Patient Start Comprehensive Care Ophthalmological Prior Patient Start Comprehensive Care 64404 011 ELAYNE BORJA Non-Physician Phone Call To Patient/Provider Brief (5-10min) Non-Physician Phone Call To Patient/Provider Brief (5-10min) 87339 011 MINERVA APARICIO [facility] Scanning Computerized Ophthalmic Diagnostic Imaging 011 JANE HOLLOWAY Visual Hatch Test Extended Examination Visual Hatch Test Extended Examination 68434 011 JANE HOLLOWAY Ophthalmological Prior Patient Start Intermediate Level Care Ophthalmological Prior Patient Start Intermediate Level Care 77625 011 JANE HOLLOWAY Fundus Photography Fundus Photography 58522 07/07 010 JANE HOLLOWAY Scanning Computerized Ophthalmic Diagnostic Imaging 010 JANE HOLLOWAY Visual Hatch Test Intermediate Examination Visual Hatch Test Intermediate Examination 21700 010 JANE HOLLOWAY Determination Of Refractive State Determination Of Refractive State 66075 010 JANE HOLLOWAY Ophthalmological Prior Patient Start Comprehensive Care Ophthalmological Prior Patient Start Comprehensive Care 93777 010 JANE HOLLOWAY Colorectal cancer screening; colonoscopy on individual not meeting criteria for high risk 010 TIARA AGUILAR [facility] Screening papanicolaou smear; obtaining, preparing and conveyance of cervical or vaginal smear to laboratory 010 TERESA ROLAND [facility] Tdap Vaccine Tdap Vaccine 61169 010 TERESA ROLAND [facility] Immunization Administration One Vaccine Immunization Administration One Vaccine 98350 010 TERESA ROLAND [facility] Visual Hatch Test Extended Examination Visual Hatch Test Extended Examination 28380 010 JEWEL PORTILLOANDREW [place] [facility] Scanning Computerized Ophthalmic Diagnostic Imaging 010 JANE HOLLOWAY [facility] Visual Function Screening Visual Function Screening 56654 010 JEWELJANE [facility] Ophthalmological Prior Patient Start Comprehensive Care Ophthalmological Prior Patient Start Comprehensive Care 98034 010 JANE HOLLOWAY [facility] Visual Hatch Test Extended Examination Visual Hatch Test Extended Examination 54033 010 JEWEL PORTILLOVANIEARL [place] [facility] Scanning Computerized Ophthalmic Diagnostic Imaging 010 JEWELNIKOLASEARL [place] [facility] Visual Hatch Test Extended Examination Visual Hatch Test Extended Examination 98135 010 JANE HOLLOWAY [facility] Ophthalmological Prior Patient Start Comprehensive Care Ophthalmological Prior Patient Start Comprehensive Care 29708 010 JEWELJANE [facility] Fundus Photography Fundus Photography 73809 010 JEWEL PORTILLOANDREW [place] [facility] Scanning Computerized Ophthalmic Diagnostic Imaging 010 JEWELJANE [facility] Social History Combined list of available smoking, tobacco, and other social history from [facility] facilities. Social History Type Response Date Comment Sourc e This section is an empty social history section. DoD Assessment and Plan Combined list of future care activities from [facility] of Defense and Veterans Affairs facilities (e.g., assessment and plan notes, appointments, orders, and referrals). Additional future care activities may be listed in the Plan of Care section. Result Assessment and Plan Date Source Assessment and Plan No data available for this section 01/08/2025 Ambulatory Pharmacy Functional Status Combined list of recent functional and cognitive assessments recorded at [facility] Functional Knox Measurement (FIM) Scale: 1 = Total Assistance (Subject = 0% +), 2 = Maximal Assistance (Subject = 25% +), 3 = Moderate Assistance (Subject = 50% +), 4 = Minimal Assistance (Subject = 75% +), 5 = Supervision, 6 = Modified Knox (Device), 7 = Complete Knox (Timely, Safely). Assessment Date/Time Source Assessment Type Assessment Skill Assessment Score Assessment Details No data available for this section
--- OUTSIDE RECORDS SUMMARY | 2025-01-08 00:41 | XMS_ITS | Clinical Summary ---
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 Gender Identity Not on file Sexual Orientation Not on file Plan of Treatment Health Maintenance Due Date Last Done Comments Hepatitis C Virus (HCV) Screening 1950 TdaP Immunization 1949 Cologuard 1994 Colonoscopy 1994 Colorectal Cancer Screening 1994 Immunochemical Fecal Occult Blood 1994 Pneumococcal Immunization (5 0+ years) (1 of 1 - PCV) 1999 Zoster Immunization (1 of 2) 1999 SARS-COV-2 Immunization ( - season) 2024 04/20/2021, 08/17/2020 Respiratory Syncytial Virus (RSV) Immunization (Adult) (1 - 1-dose 75+ series) 2024 Influenza Immunization (#1) 2025 09/2 , 01/02/2018, 01/29/2017 Hepatitis B Immunization Aged Out No longer eligible based on patient's age to complete this topic Human Papillomavirus (HPV) Immunization Aged Out No longer eligible b ased on patient's age to complete this topic Meningococcal Immunization (ACWY) Aged Out No longer eligible b ased on patient's age to complete this topic Rotavirus Immunization Aged Out No lo nger eligible based on patient's age to complete this topic
--- OUTSIDE RECORDS SUMMARY | 2025-01-08 00:41 | XMS_ITS | Clinical Summary ---
Author Organization [facility] Address [address] [place] [address] Care Team Providers Care Reservations Specialist Name Role Phone Ayden Goodrich MD Primary Care Provider [phone] Allergies Active Allergy Reactions Criticality Noted Date Comments Cephalexin Unknown Low 10/16/2013 Penicillins Unknown Low 08/19/2018 Medications timolol (TIMOPTIC) 0.5 % ophthalmic solution 9 Active Refresh Tears 0.5 % ophthalmic solution as needed 2 Active metoprolol XL (TOPROL-XL) 25 mg extended release tablet TAKE 1 TABLET(25 MG) BY MOUTH DAILY 90 tablet 3 4 Active hydrALAZINE (APRESOLINE) 25 mg tabletIndications :Essential hypertension TAKE 1 TABLET(25 MG) BY MOUTH TWICE DAILY 180 tablet 3 4 Active losartan (COZAAR) 50 mg tabletIndications :Labile hypertension TAKE 1 TABLET(50 MG) BY MOUTH DAILY 90 tablet [address] (PROTONIX) 40 mg EC tablet Take 1 tablet (40 mg total) by mouth daily Take 30mins before breakfast 90 tablet 3 5 12/02/19 26 Active Active Problems Problem Noted Date Diagnosed Date Dysphagia 11/06/2022 PVC (premature ventricular contraction) 02/17/20 22 Morbid (severe) obesity due to excess calories 0 09/15/2021 Body mass index 40.0-44.9, adult (CMS/[facility]) 09/15 Mixed hyperlipidemia 04/11/2021 Palpitations 01/28/2021 ZARATE (dyspnea on exertion) 01/28/2021 Chest tightness 01/28/2021 Essential hypertension 01/28/2021 Arthralgia of hip 12/21/2016 Back pain 10/16/2013 Joint pain 10/16/2013 Mixed stress and urge urinary incontinence 10/16 Myofascial pain 10/16/2013 Proctocele 10/16/2013 Urge incontinence of urine 10/16/2013 Encounters Date Type Department Care Team Description 12/08/2024 Telephone [facility] Medicine Obstetrics and Gynecology [address] [facility] 7th Floor [address] [place] [address] Herminia Ocasio Scheduling Appointments 12/04/2024 Results Follow-Up [facility] Medicine Gastroenterolog y [address] [facility] Medical Office Building [address], [address] [place] [id number] Anamaria Sprague MD Surgical pathology 12/04/2024 Results Follow-Up [facility] Medicine Obstetrics and Gynecology [address] [facility] 7th [address] [place] [address] Primitivo Olvera MD Pap and High Risk HPV and Genotyping (Cytology Component), US Pelvis Complete 12/03/2024 9:59 AM CDT - 12/03/2024 11:59 PM CDT Hospital Encounter [facility] [address] [facility] [facility] [address] [place] [address] Post-menopausal bleeding Discharge Disposition: Discharge to home or self care 12/01/2024 9:30 AM CDT Anesthesia Event [facility] [address] [place] [address] Cindy Cardenas MD 12/01/2024 9:30 AM CDT - 12/01/2024 10:00 AM CDT Surgery [facility] [address] [place] [address] Anamaria Sprague MD ESOPHAGOGASTRODUODENOSCOPY BALLOON DILATION <30MM 12/01/2024 7:50 AM CDT - 12/01/2024 10:58 AM CDT Hospital Encounter [facility] [address] [facility] [address] [place] [address] Anamaria Sprague MD Dysphagia, unspecified type; Dyskinesia of esophagus Discharge Disposition: Discharge to home or self care 11/26/2024 5:26 PM CDT - 11/26/2024 11:59 PM CDT Hospital Encounter [facility] [address] [facility] 3rd [place] [address] Post-menopausal bleeding Discharge Disposition: Discharge to home or self care 11/26/2024 3:30 PM CDT Office Visit [facility] Medicine Obstetrics and Gynecology [address] [place] [address] Outpatient Health 7th Floor [address] [place] [address] Sally Carter MD Rectocele (Primary Dx); RAFA (stress urinary incontinence, female); Post-menopausal bleeding; History of abnormal cervical Pap smear 11/24/2024 10:00 AM CDT Office Visit [facility] Orthopedic and Sports Medicine [address] [place] [phone] Yariel Bolton PA Primary osteoarthritis of left knee (Primary Dx) 11/24/2024 Telephone [facility] Specialty Services [address] [place] [phone] Nhi Nagel RN GI Preprocedure 11/24/2024 Telephone [facility] Orthopedic [facility] Sports Medicine [address] [place] [phone] Phoebe Noble MA from Last 3 Months Surgical History Surgery Date Site/Laterality Comments VT DILATION & CURETTAGE DX&/THER NONOBSTETRIC Dilation And Curettage - (Added by TW Conv) VT LIG/TRNSXJ FLP TUBE ABDL/VAG APPR UNI/BI Tubal Ligation - (Added by TW Conv) VT TONSILLECTOMY PRIMARY/SECONDARY <AGE 11 Tonsillectomy - (Added by TW Conv) FRACTURE SURGERY 05/14/2002 - 05/13/2003 SPINE SURGERY 05/14/2002 - 05/13/2003 TUBAL LIGATION DILATION AND CURETTAGE OF UTERUS Medical History Medical History Date Comments Cramp and spasm Leg cramps - (Ad ded by TW Conv) Personal history of other di seases of the nervous system and sense organs History of tinnitus - (Added by TW Conv) Other specified [...] nervous system and sense organs History of glaucoma - (Added by TW Conv) Hypercholesteremia Obesity Depression Arthritis 07/2020 Glaucoma 2005 Hypertension 2009 CHF (congestive heart failure) (HCC) Irregular menses 11/23/2024 Menopause ovarian failure 2005 Uterine prolapse Rectocele Dysphagia Family History Medical History Relation Name Comments Alcohol abuse Brother 1 Carlin Alcohol abuse Brother 2 Chapin Melanoma Brother 2 Chapin Alcohol abuse Father Ismael Diabetes Father Ismael Family history of diabetes mellitus - (Added by TW Conv) Heart disease Father Ismael Family history of cardiac disorder - (Added by TW Conv) Hypertension Father Ismael Family history of hypertension - (Added by TW Conv) Stroke Father Ismael Family history of cerebrovascular accident - (Added by TW Conv) Lung cancer Maternal Grandmother Rylee Colon cancer Mother Kyra Diabetes Mother Kyra Family history of diabetes [...] loss Mother Kyra Heart attack Mother's Brother 1 Lad Heart attack Mother's Brother 2 Lad Alcohol abuse Other Arthritis Other Relation Name Status Comments Brother 1 Carlin Brother 2 Chapin Father Ismael Maternal Grandmother Rylee Alive Mother Kyra Mother's Brother 1 Lad Mother's Brother 2 Lad Alive Other Social History Tobacco Use Types Packs/Day Years Used Date Smoking Tobacco: Never Smokeless Tobacco: Never Tobacco Cessation:Counseling Given: Not Answered Alcohol Use Standard Drinks/Week Comments Yes 0 (1 standard drink = 0.6 oz pur e alcohol) rare AUDIT-C Answer Date Recorded Q1: How often do you have a drink containing alcohol? Never 12/01/2024 Q2: How many drinks containi ng alcohol do you have on a typical day when you are drinking? Patient does not drink Q3: How often do you have si x or more drinks on one occasion? Never 12/01/2024 Personal Safety Answer Date Recorded Have you ever been in or are you currently in a harmful physical or emotional relationship or is someone making you feel afraid or unsafe? 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 Gender Identity Female 01/27/2021 10:14 AM CDT Sexual Orientation Straight 01/27/2021 10 :14 AM CDT Obstetrics History Para Term AB IAB SAB Ectopic Multiple Livin g Live Births 6 1 1 Date Outcome GA Total Labor Labor/2nd/3rd Weight Sex Type Anes PTL Leslie A1 A5 Name Clin Vaginal Vaginal Vaginal Vaginal Vaginal SAB Last Filed Vital Signs Vital Sign Reading Time Taken Comments Blood Pressure 152/90 12/01/2024 10:19 AM CDT Pulse 60 12/01/2024 10:19 AM CDT Temperature 36 C (96.8 F) 12/01/2024 9:59 AM CDT Respiratory Rate 18 12/01/2024 10:19 AM CDT Oxygen Saturation 99% 12/01/2024 10:19 AM CDT Inhaled Oxygen Concentration - - Weight 97.5 kg (215 lb) 12/01/2024 8:31 AM CDT Height 157.5 cm (5' 2) 12/01/2024 8:31 AM CDT Body Mass Index 39.32 12/01/2024 8:31 AM CDT Plan of Treatment Health Maintenance Due Date [...] - PCV20 or PCV21) 02/10/2020 02/09/2015, 02/13/2012 Covid-19 Vaccine (2 - 2023-2 5 season) 2024 08/17/2020 Influenza Vaccine (#1) 2025 , 01/31/2019, 01/02/2018, Additional history exists Fall Risk Assessment 12/01/2025 12/01/2024, 05/19/2022, 02/16/2022 Procedures Procedure Name Priority Date/Time Associated Diagnosis Comments US PELVIS COMPLETE Schedule Routine, Read Routine (OP Routine) 12/03/2024 9:59 AM CDT Post-menopausal bleeding SURGICAL PATHOLOGY Routine 12/01/2024 9:50 AM CDT Dysphagia, unspecified type Dyskinesia of esophagus ENDO ADD ON ESOPHAGOGASTRODUODENOSCOPY BIOPSY 12/01/2024 9:30 AM CDT Dysphagia, unspecified type Dyskinesia of esophagus ESOPHAGOGASTRODUODENOSCOPY BALLOON DILATION <30MM 12/01/2024 9:30 AM CDT Dysphagia, unspecified type Dyskinesia of esophagus EGD 12/01/2024 8:17 AM CDT PAP AND HIGH RISK HPV, REFLE X TO GENOTYPING Routine 11/26/2024 5:26 PM CDT Post-menopausal bleeding HIGH RISK HPV DNA DETECTION WITH GENOTYPING Routine 11/26/2024 5:26 PM CDT Post-menopausal bleeding VT ARTHROCENTESIS ASPIR&/INJ MAJOR JT/BURSA W/US Routine 11/24/2024 10:00 AM CDT Primary osteoarthritis of left knee from Last 3 Months Results * US Pelvis Complete (12/03/2024 9:59 AM CDT) Cul de Sac No free fluid visualized VIEWPOINT Endometrial Thickness 10.4 mm&millim eters VIEWPOINT Anatomical Region Laterality Modality Pelvis N/A Ultrasound 12/03/2024 10:0 0 AM CDT Impressions 12/03/2024 11:41 AM CDT The uterus is anteverted and normal in size. The endometrial stripe is thickened and measures 10.4 mm. There is a large amount of homogenous fluid in the cervical canal, may be consistent with cervical stenosis at the external os. Ovaries are not visualized. There was no evidence of free fluid in the pelvis. Narrative Procedure Note Niurka Goldberg MD - 12/03/2024 IMPRESSION: The uterus is anteverted and normal in size. The endometrial stripe isthickened and measures 10.4 mm. There is a large amount of homogenousfluid in the cervical canal, may be consistent with cervical stenosis atthe external os. Ovaries are not visualized. There was no evidence offree fluid in the pelvis. us Sally Carter MD [facility]EDURES Final R esult * Surgical pathology (12/01/2024 9:50 AM CDT) Tissue (Esophageal biopsy) 12/01/2024 9:50 AM CDT Narrative PATHOLOGY [facility] - 12/02/2024 10:32 PM CDT EPIC results best viewed via link to PDF [facility], [place] [address] Note to Patients: This report may contain a detailed description of human tissue sent by a health care provider to the laboratory for pathologic evaluation. The content of this report is essential for diagnosis and may provide important critical findings. This information may be unfamiliar to patients to review without a medical professional present. It is advised that the patient review this report in the presence of a health care provider who can answer questions and explain the details. SURGICAL PATHOLOGY REPORT FINAL Patient Name: HILARIO FERREIRA Gender: F : 1950 (Age: 74) Address: [address] [place] [address] , [place] [address] Hospital #: [id number] Taken:12/01/2024 Received:12/01/2024 Reported: 12/02/2024 Patient Type: [facility] Service: Gastro Location: Physician(s): Win Roblero M.D. Joel X Frankel, MD Diagnosis: Esophagus, distal esophageal ring, endoscopic biopsy - Squamous mucosa with mild chronic inflammation and reactive epithelial changes, consistent with reflux esophagitis - No acute inflammation, ulcers, or microorganisms - No intestinal metaplasia, dysplasia, or malignancy giyi/12/01/2024 15:34 By this signature, I attest that the above diagnosis is based upon my personal examination of the slides(and/or other material indicated in the diagnosis). Chicho Staley MD Report Electronically Reviewed and Signed Out By Chicho Staley MD 12/02/2024 22:32:07 Microscopic Description and Comment: Microscopic examination substantiates the above cited diagnosis. Mariya Haque M.D. History: The patient is a 74-year-old woman presenting with dysphagia. Operative procedure: Upper GI endoscopy. Specimen(s) Received: A: Distal esophageal ring Gross Description: Received in formalin, labeled with the patient s identifiers and distal esophageal ring and consists of multiple pink-white fragment(s) of soft tissue measuring 0.5 x 0.5 x 0.2 cm in aggregate. Labeled A1. Jar 0. sxst/12/01/2024 12:10 PA(s): Carmela Ryder By this signature, I attest that the above diagnosis is based upon my personal examination of the slides(and/or other material). Addenda/Procedures The performance characteristics of some immunohistochemical stains, fluorescence in-situ hybridization tests and immunophenotyping by flow cytometry cited in this report (if any) were determined by the Surgical Pathology and Flow Cytometry Departments at [facility] as part of an ongoing quality compliance consultant program and in compliance with federally mandated regulations drawn from the Clinical Laboratory Improvement Act of 1988 (CLIA '88). Some of these tests rely on the use of analyte specific reagents and are subject to specific labeling requirements by the US Food and Drug Administration. Such diagnostic tests may only be performed in a facility that is certified by the Department of Health and Human Services as a high complexity laboratory under CLIA '88. The FDA has determined that such clearance or approval is not necessary. This test is used for clinical purposes. It should not be regarded as investigational or for research. Nevertheless, federal rules concerning the medical use of analyte specific reagents require that the following disclaimer be attached to the report: This test was developed and its performance characteristics determined by the Surgical Pathology and Flow Cytometry Departments of [facility]. It has not been cleared or approved by the U. S. Food and Drug Administration. IMAGES AND SCANNED DOCUMENTS, IF INCLUDED, ONLY VIEWABLE IN PDF VERSION OF REPORT Anamaria Sprague MD LAB PATHOLOGY ORDERABL ES Final Result PATHOLOGY [facility] 3rd Floor [place], [place] [phone] * EGD (12/01/2024 8:17 AM CDT) Anatomical Region Laterality Modality Other Narrative Procedure Note Anamaria Sprague MD - 12/01/2024 8:17 AM CDT GI ENDOSCOPY [facility] Patient Name: Hilario Ferreira Procedure Date: 12/01/2024 8:17 AM Date of : 1950 Admit Type: Outpatient Age: 74 Gender: Female Attending MD: Anamaria Sprague M.D., Room: [facility] ENDOSCOPY ROOM 1 Note Status: Finalized Procedure: Upper GI endoscopy Indications: Dysphagia Referring MD: Babar Cheek M.D. Providers: Anamaria Sprague M.D. Medicines: Monitored Anesthesia Care Complications: No immediate complications. Estimated Blood Loss: Estimated blood loss: none. Procedure: Pre-Anesthesia Assessment: - Prior to the procedure, a History and Physicalwas performed, and patient medications, allergies and sensitivities were reviewed. The patient'stolerance of previous anesthesia was reviewed. - The risks and benefits of the procedure and the sedation options and risks were discussed with the patient. All questions were answered and informed consent was obtained. - Immediately prior to administration ofmedications, the patient was re-assessed for adequacy to receive sedatives. The benefits, risks, and alternatives to theprocedure and sedation were discussed and informed consentwas obtained. The upper GI endoscopy was accomplished without difficulty. The patient tolerated the procedure well. The scope was passed under direct vision. The GIF [id number] endoscope was introduced through the mouth, and advanced to the second part of duodenum. Findings: The proximal esophagus and mid esophagus were normal. One benign-appearing, intrinsic moderate stenosis was found 35 cmfrom the incisors. This stenosis measured 9 mm (inner diameter) x lessthan one cm (in length). The stenosis was traversed after dilation. A TTS dilator was passed through the scope. Dilation with a 15-16.5-18 mm x 5.5 cm CRE balloon (to a maximum balloon size of 15 mm) dilator was performed. Biopsies were taken with a cold forceps for histology andto break the ring/stricture. The pathology specimen was placed intoBottle A. No bleeding or perforation post dilation A large, 5 cm hiatal hernia was present. The entire examined stomach was normal. The duodenal bulb and second portion of the duodenum were normal. Impression: - Normal proximal esophagus and mid esophagus. - Benign-appearing esophageal stenosis. Dilatedwith a 15-16.5-18 mm x 5.5 cm CRE balloon (to a maximum balloon size of 15 mm). Biopsied. - Large, 5 cm hiatal hernia. - Normal stomach. - Normal duodenal bulb and second portion of the duodenum. Recommendation: - -Observe pt in recovery. - Discharge patient to home when stable. - Patient has a contact number available for emergencies. The signs and symptoms of potential delayed complications were discussed with thepatient. Return to normal activities tomorrow. Written discharge instructions were provided to thepatient. - Resume previous diet. - Continue present medications. -Start Protonix 40mg PO QD - Await pathology results. - The findings and recommendations were discussedwith the patient. -In the unusual situation that you developabdominal pain, bleeding or other significant problems in the days following this procedure please call Yasmany Monet [phone]. After hours and evenings please call [phone] speak to the GI fellow entry level sales consultant. Please tell thefellow that Dr. Sprague did your procedure and that youwere instructed to have the fellow call me orthephysician covering for me to discuss the management of your condition. If you have an urgent problem, please goto the nearest emergency room and have the ER doctorcall my office during the day or the GI fellow afterhours and weekends to arrange admission or transfer toour facility. Please bring this report with you if you go to the emergency room. Attending Participation: I personally performed the entire procedure. Electronically signed by Anamaria Sprague MD Anamaria Sprague M.D. 12/01/2024 9:58:08 AM . Number of Addenda: 0 Note Initiated On: 12/01/2024 8:17 AM us Anamaria Sprague MD ENDOSCOPY PROCEDURES F inal Result * High Risk HPV DNA Detection with Genotyping (Molecular component) (11/26/2024 5:26 PM CDT) HPV HR 16 Not Detected Not Detected [facility] HPV HR 18 Not Detected Not Detected [facility] HPV HR Non 16/18 Not Detected Not Detected [facility] Comment: Interpretive Data Nucleic acid amplification for detection of high-risk Human Papilloma virus (HPV) is performed by the Dalila Tiana 6800 HPV test. This assay specifically detects HPV-16 and HPV-18 genotypes. The following HPV genotypes are detected as high-risk HPV: HPV-31, 33, 35, ,39, 45, 51, 52, 56, 58, 59, 66, and 68. This assay has been approved by the [place] Food and Drug Administration for detection of HPV in cervical specimens collected by a physician using an endocervical brush/spatula or cervical broom and placed in the ThinPrep Pap Test PreservCyt collection containers. The performance characteristics of this test have been verified by the [facility] Molecular Infectious Disease laboratory. Correlate with separately reported cytology results, as applicable. Interpretive data last revised 22 Endocervical 11/26/2024 5:26 PM CDT 11/27/2024 8:40 AM CDT Narrative [facility] - 11/27/2024 10:36 PM CDT Clinical history and diagnosis->screening, hx cone Number of vials->1 Testing type->Screening Last menstrual period (date if known)->unk Carmela Mcodwell MD LAB BODY FLUIDS AND STO OLS ORDERABLES Final Result [facility] Department [place] [address] [facility] * Pap and High Risk HPV and Genotyping (Cytology Component) (11/26/2024 5:26 PM CDT) Thin prep (Pap test) 11/26/2024 5:26 PM CDT 11/26/2024 7:30 PM CDT Narrative PATHOLOGY [facility] - 12/02/2024 4:03 PM CDT EPIC results best viewed via link to PDF [facility] [place] [address] Note to Patients: This report may contain a detailed description of human tissue sent by a health care provider to the laboratory for pathologic evaluation. The content of this report is essential for diagnosis and may provide important critical findings. This information may be unfamiliar to patients to review without a medical professional present. It is advised that the patient review this report in the presence of a health care provider who can answer questions and explain the details. CYTOPATHOLOGY REPORT FINAL Patient Name: HILARIO FERREIRA Gender: F : 1950 (Age: 74) Address: [address] [place], [place] [address] Hospital #: [id number] Service: [employer] Location: Patient Type: [facility] SPECIMEN Taken: 11/26/2024 Received: 11/26/2024 Accessioned: 11/27/2024 Reported: 12/02/2024 Physician(s): Carmela Mcdowell MD FINAL INTERPRETATION SOURCE OF SPECIMEN Liquid based Thin Prep pap with HPV: STATEMENT OF ADEQUACY - Satisfactory for evaluation - No endocervical/transformation zone sample present in a post menopausal patient GENERAL CATEGORIZATION: - Negative for squamous intraepithelial lesion or malignancy INTERPRETATION: - Atrophy Comments (Normal-Negative for High Risk HPV) HPV HR 16- Not detected HPV HR 18-Not detected HPV HR non 16/18- Not detected Interpretive Data Nucleic acid amplification for detection of high-risk Human Papilloma virus (HPV) is performed by the Dalila Tiana 6800 HPV test. This assay specifically detects HPV- 16 and HPV-18 genotypes. The following HPV genotypes are detected as high-risk HPV: HPV-31, 33, 35, 39, 45, 51, 52, 56, 58, 59, 66, and 68. This assay has been approved by the [place] Food and Drug Administration for detection of HPV in cervical specimens collected by a physician using an endocervical brush/spatula or cervical broom and placed in the ThinPrep Pap Test PreservCyt collection containers. The performance characteristics of this test have been verified by the [facility] Molecular Infectious Disease laboratory. Correlate with reported cytology results, as applicable. Interpretive data last revised 22 rks/12/02/2024 16:03 JOMAR Lopez(ASCP), [facility] Report Electronically Reviewed and Signed Out By JOMAR Lopez(ASCP), ALDO 12/02/2024 16:03:10 Cervicovaginal Cytology (Pap Test) Disclaimer: The Pap test is a screening test used to detect cervical cancer and its precursors; it is not a diagnostic procedure. False negative and false positive results do occur. Pap test results should be interpreted in the context of pertinent clinical information and biopsy results as indicated. [facility] Clinical Laboratory Improvement Amendments (CLIA) mandate that cytologic and histologic results be correlated for laboratory assistant quality manager & improvement standards. FOR ALL HIGH-GRADE CASES we request submission of follow-up histological material and/or reports that have not been previously provided so that we may fulfill said required standards. Gross Description A. Liquid based Thin Prep pap with HPV: Cervical/vaginal - Screening ThinPrep Clinical Diagnosis and History Last Menstrual Period: unknown The patient is a 74 year old female with screening, history of cone. Report Images and scanned documents, if included only viewable in PDF version The performance characteristics of some immunohistochemical stains, in-situ hybridization and fluorescence in-situ hybridization tests and immunophenotyping by flow cytometry cited in this report (if any) were determined by the Surgical Pathology Department at [facility] as part of an ongoing quality compliance consultant program and in compliance with federally mandated regulations drawn from the Clinical Laboratory Improvement Act of 1988 (CLIA '88). Some of these tests rely on the use of analyte specific reagents and are subject to specific labeling requirements by the US Food and Drug Administration. Such diagnostic tests may only be performed in a facility that is certified by the Department of Health and Human Services as a high complexity laboratory under CLIA '88. The FDA has determined that such clearance or approval is not necessary. This test is used for clinical purposes. It should not be regarded as investigational or for research. Nevertheless, federal rules concerning the medical use of analyte specific reagents require that the following disclaimer be attached to the report: This test was developed and its performance characteristics determined by the Surgical Pathology Department of [facility]. It has not been cleared or approved by the U. S. Food and Drug Administration. us Carmela Mcdowell MD LAB CYTOLOGY ORDERABLES Final Result PATHOLOGY [facility] 3rd Floor [place], [place] [phone] * [place] ARTHROCENTESIS ASPIR&/INJ MAJOR JT/BURSA W/US (11/24/2024 10:00 AM CDT) Narrative Yariel Bolton PA - 11/24/2024 10:00 AM CDT Yariel Bolton PA 11/24/2024 10:23 AM Large Joint (Hip, Knee, Shoulder) Injection: L knee Performed by: Yariel Bolton PA Authorized by: Yariel Bolton PA Large Joint Injection/Aspiration: Consent Given by: Patient Site marked: the procedure site was marked Timeout: prior to procedure the correct patient, procedure, and site was verified Verbal consent obtained: Yes Supporting Documentation: Indications: Pain Procedure Details: Location: Knee Site: L knee Prep: patient was prepped and draped in usual sterile fashion Needle Size: 22 G Approach: Superior lateral Ultrasound guided: Yes Fluroscopic guidance: No Ultrasound guidance used for: Real-time guidance Sterile ultrasond techniques: Sterile gel and sterile probe covers were used Ultrasound note: The superior patellar fat pad was identified with ultrasound visualization with the patient was positioned properly. The needle was then guided into the identified space under ultrasound guidance. The injection was administered into this space under real-time visualization. Medications: 88 mg hyaluronate 88 mg/4 mL Patient tolerance: Patient tolerated the procedure well with no immediate complications us Yariel FLOYD IN CLINIC/BEDSIDE ORDERABLE S Final Result from Last 3 Months Insurance MEDICARE FOR LIFE MEDICARE FOR LIFE MEDICARE FOR LIFE Advance Directives For more information, please contact: [phone] * Full Code (Latest Code Status on File) Date Activated Date Inactivated Comments 12/01/2024 8:32 AM 12/01/2024 3:09 PM Care Teams Reservations Specialist Relationship Specialty Start Date End Date Ayden Goodrich MD [address] [place] [address] PCP - General Family Medicine 05/26/24
--- OUTSIDE RECORDS SUMMARY | 2025-01-08 00:42 | XMS_ITS | Clinical Summary ---
Author Organization [facility] Address [address] [place] [id number] Care Team Providers Care Bridge Mechanic Name Role Phone Unavailable Primary Care Provider [...]
--- OUTSIDE RECORDS SUMMARY | 2025-01-08 00:42 | XMS_ITS | Encounter Summary ---
Author Organization [facility] Address [address] [place] [address] Phone Care Team Providers Care Regional Sales Leader Name Role Phone Ayden Goodrich MD Primary Care Provider [phone] Encounter Details Date Type Department Care Team (Late st Contact Info) Description 12/04/2024 Results Follow-Up [facility] Medicine Gastroenterology [address] [facility] [address], [address] [place] [address] Anamaria Sprague MD [address] [place] [address] Surgical pathology Social History Tobacco Use Types Packs/Day Years Used Date Smoking Tobacco: Never Smokeless Tobacco: Never Alcohol Use Standard Drinks/Week Comments Yes 0 [...] on file Legal 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 documented in this encounter Plan of Treatment Not on file documented as of this encounter Visit Diagnoses Not on filedocumented in this encounter Care Teams Regional Sales Leader Relationship Specialty Start Date End Date Ayden Goodrich MD [address] [place] [address] PCP - General Family Medicine 05/26/24 documented as of this encounter
[2025-01-08] MEDS: LACTATED RINGERS 1,000 ML 30 ML IV CONT (06:45)
[2025-01-08] MEDS: ACETAMINOPHEN 500 MG TABLET 1000 MG PO (07:35)
[2025-01-08 07:36] VITALS: BP 190/76; PULSE 67; RESP 16; TEMP 36.3; O2SAT 97
[2025-01-08 07:44] LABS: Hematocrit 40.5 % (37.0-47.0); Hemoglobin 13.0 g/dL (12.0-15.0); Mean Corpuscular HGB Conc 32.1 g/dl (32-36); Mean Corpuscular Hemoglobin 29.7 pg (26-34); Mean Corpuscular Volume 92.7 fl (80-100); Platelet Count Result 242 k/mm3 (150-375); Red Blood Count 4.37 M/mm3 (4.2-5.4); White Blood Count 7.9 K/mm3 (4.5-10.0)
--- NOTE | 2025-01-08 08:20 | WPDHPUPDATE1 ---
History and Physical Update Update Date/Time: 01/08/25 08:20 History and Physical has been reviewed, including an updated exam of the patient. There are NO changes in the patient's condition. Risks, benefits, and alternatives have been discussed and questions answered. Patient agrees to proceed with procedure.
--- NOTE | 2025-01-08 08:32 | WPDANESEPPF ---
Anes - Initial Pre Proc Eval Procedure: Operation Date: 01/08/25 08:30 Proposed Procedures p Hysteroscopy Dilation and Curettage - Damion Casas MD Date/Time: 01/08/25 08:32 Surgeon: Damion Casas MD Pre Op Diagnosis: post menopausal bleeding Patient Data Age: 74 Gender: F Height: 1.57 m Weight: 99.6 kg Last Vital Signs Temp 36.3 C L 01/08/25 07:36 Pulse 67 01/08/25 07:36 Resp 16 01/08/25 07:36 BP 190/76 H 01/08/25 07:36 Pulse Ox 97 01/08/25 07:36 O2 Del Method Room Air 01/08/25 07:36 Allergies Allergy/AdvReac Type Severity Reaction Status Date / Time Cephalosporins Allergy Unknown Verified 01/08/25 07:34 Home Medications ?Medication ?Instructions ?Recorded ?Confirmed ?Type hydralazine 50 mg tablet 25 mg PO BID 02/08/22 01/08/25 History losartan 25 mg tablet 50 mg PO HS 02/08/22 12/23/24 History timolol maleate 0.5 % eye drops 1 drp EACH EYE DAILY 02/08/22 12/23/24 History metoprolol succinate 25 mg 25 mg PO DAILY 12/23/24 01/08/25 History tablet,extended release 24 hr misoprostol 200 mcg tablet 200 mcg vaginal ONCE #1 tablet 01/07/25 Rx (Cytotec) Laboratory Tests 01/08/25 07:06 WBC 7.9 K/mm3 (4.5-10.0) RBC 4.37 M/mm3 (4.2-5.4) Hgb 13.0 g/dL (12.0-15.0) Hct 40.5 % (37.0-47.0) MCV 92.7 fl (80-100) MCH 29.7 pg (26-34) MCHC 32.1 g/dl (32-36) RDW 13.2 % (11.5-14.5) Plt Count 242 k/mm3 (150-375) MPV 11.2 H fl (7.4-10.4) Patient hx anesthesia problems: none Family hx anesthesia problems: none Results Review: All pre-operative results and documents have been reviewed as part of the pre-operative evaluation. [facility] Past Medical History Medical History Hiatal hernia Regurgitation of food Hemorrhoids Obesity Family hx of colon cancer Dysphagia Hypertension Surgical History Surgical History History of back surgery History of endoscopy x 3 narrowing esophagus Family History Family History Mother Breast cancer Diabetes mellitus Heart disease Hypertension Father Alcoholism Diabetes mellitus Hypertension Cerebrovascular accident Social History Social History Smoking status: Never smoker Second hand tobacco smoke exposure: No Alcohol intake: never Substance use: never Substance use type: does not use Do You Feel Safe in your Home?: Yes Lack of Transportation: No Lack of Food: Never True Current Housing: I Have Housing Concerned About Future Housing: No Difficulty Paying Gas/Electric Bills: No Difficulty Paying for Meds: No Currently Unemployed: No Education: Bachelor's Degree Difficulty w/ Childcare or Family Care: No Living arrangements: with family Additional living arrangements comments: Occupation/Education: retired Gender identity (if verbalized by the patient): Female Sexual Orientation (if Verbalized by the Patient): Straight or Heterosexual Spiritual care concerns: No Anes - Eval Final PreProcedure Day of Procedure 01/08/25 08:32 Patient weight: morbidly obese Heart: regular rate and rhythm Lungs: clear to auscultation Airway: Mallampati scale class II Neurological: alert and oriented Last oral intake: >/= 8 hours ASA classification: III Emergent: no Anesthetic plan: proceed Anesthesia type and monitoring: general GIVS and standard monitoring Results Review: All pre-operative results and documents have been reviewed as part of the pre-operative evaluation. Informed Consent: The patient's anesthetic plan and its attendant risks and benefits were discussed with the patient/family/POA. Questions were solicited and answers provided to the satisfaction of the patient/family/POA.
--- NOTE | 2025-01-08 08:51 | S_PTH ---
PATIENT: Jeannine Ferreira LOC: [facility] U#:[id number] AGE/SX: 74/F ROOM: RE01/08/[address]: Damion Casas MD : 1950 BED: DIS: 01/08/2025 SPEC #: [id number] RECD: 01/08/25 10:20 STATUS: ROHIT REQ #: [id number] ANT: 01/08/25 08:[address]: Damion Casas DEPT: [facility] Surgical RECD BY: Veronique Holbrook ENTERED: 01/08/25 10:20 SP TYPE: Surgical OTHR DR: Ayden Goodrich MD Tissues: A - Cervical Biopsy B - Endometrial Curettings Procedures: Hematoxylin and Eosin Stain Gross and Microscopic Level 4
--- NOTE | 2025-01-08 09:01 | W.PM.PROC2 ---
Procedure Note - Detailed Date of Procedure 01/08/25 Pre-op Diagnosis 1. post menopausal bleeding Post-op Diagnosis Same (2. Endometrial polyp ) Procedure Performed 1. Hysteroscopy 2. Polypectomy with uterine curettings Surgeon Damion Casas MD Anesthesia MAC Findings 1. Mucoid tissue from endometrial cavity 2. Slightly thickened endometrial tissue with hypervascular polyp noted Description of Procedure Patient prepped and draped in usual manner for this procedure. Cervix was dilated to allow the hysteroscope to be placed. Upon dilation mucoid tissue was drained from the uterine cavity (this was sent as part of the specimen as well). Upon hysteroscopic exam polyp was noted and removed through the hysteroscope without difficulty. Generalized sampling of all 4 quadrants was then undertaken as well. At this point the procedure was considered terminated and immediate postoperative condition patient well and sent to recovery. Drains No Packing No Pathology Yes Complications No immediate complications Condition Stable Disposition PACU [facility] Billing Surgery - Charge Forward: Surgery Billing
[2025-01-08 09:05] VITALS: BP 132/65; PULSE 59; RESP 12; O2SAT 98
[2025-01-08 09:35] VITALS: BP 146/56; PULSE 57; RESP 16
[2025-01-08 09:50] VITALS: BP 129/51; PULSE 61; RESP 16
== END 2025-01-08 09:58 | disposition home or self-care (01) ==
PROVIDERS: PCP Emergency Medicine; Visit Provider Obstetrics & Gynecology
PROC: 0U5B8ZZ Destruction of Endometrium, Via Natural or Artificial Opening Endoscopic (ICD-10-PCS; CPT 58563; principal; 2025-01-08 08:30)
DX: N95.0 Postmenopausal bleeding (principal); N84.0 Polyp of corpus uteri; E66.01 Morbid (severe) obesity due to excess calories; Z68.41 Body mass index [BMI] 40.0-44.9, adult
CPT/HCPCS: 58558; 36415; 85027; 88305; A9270; J2704; J3010; J7120